=== PATIENT | female | born 1970 | race Caucasian/White ===

== ENCOUNTER 2023-01-16 21:20 | Inpatient (IN) ==
--- NOTE | 2023-01-16 21:34 | Emergency Department Note ---
Impression & Plan Bilateral pneumonia, Nausea & vomiting, Hypocalcemia, Acute dehydration ED Provider Note NAME: ZHANNA BERMUDEZ AGE: 52 SEX: F : 1970 ARRIVES VIA: Walk-In INFORMANT: Patient, ED PROVIDER(S): Benjamin Trimble MD CHIEF COMPLAINT: Weakness, dry heaves, headache MEDICAL DECISION MAKING: Patient does present with numerous complaints; however, the patient did have a recent CT of the head within the last 2 days Osman Crane she requires repeat at this time. The patient has a nonfocal neurologic exam. IV was established and blood work was obtained. The patient was noted to have a white count of 21 the patient was ordered a CT of the abdomen pelvis. Chest x-ray does show increased haziness in the bilateral lung kim and the patient does relate a recent diagnosis of pneumonia. Patient was ordered Zosyn and MRSA swab. Pro- Charanjit and cultures also ordered. Patient's kidney function is unremarkable mild hypokalemia and hypocalcemia. Equivocal Lyme. Bio fire is negative. Lactate of 0.8. Urinalysis negative for blood or infection. CT does show the pneumonia with hiatal hernia with possible constipation but no evidence of appendicitis or bowel obstruction. I did speak the on-call hospitalist service Dr. Cheatham and the patient was admitted to the medicine service Prior /Outside records reviewed: Did review her outpatient records from [facility]. Patient did have a recent negative CT of the head and was diagnosed with pneumonia and migraine. This was on a visit January 14, 2023 Differential diagnosis: Infection, dehydration, metabolic abnormality, hypo/hyperglycemia, electrolyte disturbance, anemia, hypoxia, cardiac sources, intracerebral event, toxicologic, neurologic, as well as other pathologies. Diagnostics, as interpreted by me: ECG: None Cardiac monitoring: An order was placed for continuous cardiac monitoring. The monitor shows a rate of 88 with sinus rhythm. Patient was placed on pulse oximetry Medical decision rules: Curb 65 score Imaging studies: See below I informally reviewed the patient's chest x-ray which does show bilateral increased haziness concerning for possible pneumonia. HPI: Patient presents with numerous complaints states that she has had some regurgitation with feeling as though she has something coming up from the back of her throat does have a known history of reflux. The patient did have a recent visit at [facility] and has had some persistent migrainous type symptoms. The patient is tried rizatriptan as well as other [id number] medications but without significant improvement in symptoms. The patient denies any falls or trauma. Patient relates that she does have a known history of hiatal hernia. Patient was started on amoxicillin for the pneumonia. The patient does feel weak and fatigued. No history of Lyme's or tick bites. Patient does complain of some abdominal discomfort. No dysuria PAST MEDICAL HISTORY: See Below PAST SURGICAL HISTORY: See Below SOCIAL HISTORY: See Below HOME MEDICATIONS: See Below ALLERGIES: See Below VITALS: See Below PHYSICAL EXAMINATION: GENERAL: NAD, fatigued in appearance, non-toxic. EYE EXAM: Normal conjunctiva. PERRL, no anisocoria and EOM's grossly intact w/o pain. NECK: Supple, no nuchal rigidity, no adenopathy, non-tender. No signs of meningismus. FROM of the neck with good chin to chest and neck extension. No stridor. LUNGS: Clear to auscultation. Normal chest wall mechanics. HEART: NSR, no MRG. ABDOMEN: Abdomen soft, mild abdominal discomfort without pain, no masses, no rebound or guarding. BACK: No CVA TTP. SKIN: No rashes and no bruising. UPPER EXTREMITIES: Upper extremities are grossly normal. LOWER EXTREMITIES: Grossly normal, no edema. NEURO EXAM: A&O x3, cranial nerves II-XII grossly intact, normal speech, moves all 4 extremities. Past Med/Surg History Medical History GERD (gastroesophageal reflux disease) Hiatal hernia Surgical History No pertinent past surgical history Social History Smoking Status: Current every day smoker Tobacco Type: Cigarettes Second Hand Exposure: Yes; Do You Dip or Chew Tobacco: No; Hx Alcohol Use: No Hx Substance Use: No Preferred Language: Greek Communication Ability: Effective Controlled Area Checker Required: No Beliefs That Will Affect Care: None Current Living Situation: Spouse Other Information That Helps Us Care for You: No Feels Safe at Home: Yes Safety Concerns: Feels Safe At This Time Allergies Allergies Allergy/AdvReac Type Severity Reaction Status Date / Time No Known Allergies Allergy Verified 01/16/23 22:08 Home Meds Home Medications Medication Instructions Recorded Confirmed atorvastatin 80 mg tablet 80 mg PO DAILY 01/12/22 01/16/23 ezetimibe 10 mg tablet (Zetia) 10 mg PO DAILY 01/12/22 01/16/23 famotidine 20 mg tablet 20 mg PO BID 01/12/22 01/16/23 hydroxyzine pamoate 50 mg capsule 50 mg PO TID PRN Anxiety 01/12/22 01/16/23 losartan 50 mg tablet 50 mg PO DAILY 01/12/22 01/16/23 magnesium oxide 400 mg PO DAILY 01/12/22 01/16/23 omeprazole 40 mg capsule,delayed 40 mg PO BID 01/12/22 01/16/23 release ondansetron 4 mg disintegrating 4 mg PO TID PRN NAUSEA/VOMITING 01/12/22 01/16/23 tablet riboflavin (vitamin B2) 400 mg 400 mg PO DAILY 01/12/22 01/16/23 tablet trazodone 100 mg tablet 100 mg PO HS 01/12/22 01/16/23 albuterol sulfate 90 mcg/actuation 2 puff inhalation Q4H PRN 01/16/23 01/16/23 aerosol inhaler COUGH/SHORT OF BREATH/WHEEZING cefuroxime axetil 500 mg tablet 500 mg PO BID 01/16/23 01/16/23 chlorpromazine 100 mg tablet 100 mg PO HS 01/16/23 01/16/23 cholecalciferol (vitamin D3) 125 125 mcg PO WK 01/16/23 01/16/23 mcg (5,000 unit) tablet (Vitamin D3) clonazepam 1 mg tablet 1 mg PO HS 01/16/23 01/16/23 dexamethasone 4 mg tablet 4 mg PO DAILY 01/16/23 01/16/23 diphenhydramine HCl 25 mg capsule 25 mg PO HS PRN IF NEEDED PER EXT 01/16/23 01/16/23 (Banophen) MED HX. escitalopram oxalate 10 mg tablet 10 mg PO DAILY 01/16/23 01/16/23 (Lexapro) ferrous sulfate 325 mg (65 mg 325 mg PO QAM 01/16/23 01/16/23 iron) tablet fluticasone 250 mcg-salmeterol 50 1 inh inhalation BID 01/16/23 01/16/23 mcg/dose blistr powdr for inhalation (Advair Diskus) levetiracetam 750 mg tablet 750 mg PO BID 01/16/23 01/16/23 (Keppra) mupirocin 2 % topical ointment 1 applic topical TID 01/16/23 01/16/23 orlistat 120 mg capsule (Xenical) 120 mg PO TIDM 01/16/23 01/16/23 rizatriptan 10 mg disintegrating 10 mg translingual DIRECTED PRN 01/16/23 01/16/23 tablet Migraine Headache sucralfate 1 gram tablet (Carafate) 1 g PO ACHS 01/16/23 01/16/23 Results & Data (ED) Vital Signs Vital Signs - 24 hr 01/16/23 21:21 01/16/23 21:40 01/17/23 00:13 Temperature 36.7 C Temperature Source Temporal Artery Scan Pulse Rate 88 Pulse Rate [Apical] 62 Pulse Rhythm [Apical] Regular Pulse Strength [Apical] Normal Respiratory Rate 18 16 Respiratory Effort / Characteristics Non-Labored Spontaneous Non-Labored Spontaneous Respiratory Depth Normal Normal Respiratory Pattern Regular Blood Pressure 132/79 Blood Pressure [Left Arm] 145/84 H Blood Pressure Mean 96 Blood Pressure Mean [Left Arm] 104 Blood Pressure Position Sitting Pulse Oximetry 95 98 95 Oxygen Delivery Method Room Air Room Air Room Air Sepsis Recent Fever Within 48 Hours No Sepsis New/Unexplained Change in Mental Status No Sepsis Action Taken by Nursing No Action Required 01/17/23 00:16 Temperature Temperature Source Pulse Rate 62 Pulse Rate [Apical] Pulse Rhythm [Apical] Pulse Strength [Apical] Respiratory Rate Respiratory Effort / Characteristics Respiratory Depth Respiratory Pattern Blood Pressure Blood Pressure [Left Arm] Blood Pressure Mean Blood Pressure Mean [Left Arm] Blood Pressure Position Pulse Oximetry Oxygen Delivery Method Sepsis Recent Fever Within 48 Hours Sepsis New/Unexplained Change in Mental Status Sepsis Action Taken by Half-Way Medications Current Medication List: was personally reviewed by me Laboratory Data Attestation: I reviewed the patient's lab results. 01/17/23 05:31 01/17/23 05:31 Lab Results 01/16/23 01/16/23 01/16/23 Range/Units 21:50 21:50 21:50 WBC 21.02 H (4.8-10.8) K/ul RBC 3.73 L (4.20-5.40) M/uL Hgb 11.9 L (12.0-16.0) g/dl Hct 34.7 L (37.0-47.0) % MCV 93.0 (80.0-100.0) fL MCH 31.9 (25.0-34.0) pg MCHC 34.3 (32.0-36.0) g/dL RDW Std Deviation 45.0 (36.4-46.3) fL RDW Coeff of Tejal 13.2 (11.5-14.5) % Plt Count 215 (130-400) K/uL MPV 10.4 (9.4-12.4) fL Immature Gran % (Auto) 1.5 % Neut % (Auto) 79.6 % Lymph % (Auto) 11.7 % [place] % (Auto) 7.0 % Eos % (Auto) 0.0 % Baso % (Auto) 0.2 % Neut # (Auto) 16.73 H (1.40-6.50) K/uL Lymph # (Auto) 2.45 (1.2-3.4) K/uL [place] # (Auto) 1.48 H (0.11-0.59) K/uL Eos # (Auto) 0.00 (0-0.50) K/uL Baso # (Auto) 0.04 (0-0.2) K/uL Immature Gran # (Auto) 0.32 H (0.01-0.20) K/uL Sodium 142 (136-145) mmol/L Potassium 3.2 L (3.5-5.1) mmol/L Chloride 110 H (98-107) mmol/L Carbon Dioxide 26 (21-32) mmol/L Anion Gap 6 (3-11) BUN 10 (6-23) mg/dl Creatinine 0.62 (0.6-1.2) mg/dl Est Cr Clr Drug Dosing 115.7 ml/min Est GFR ( Amer) 121.0 ml/min Est GFR (Non-Af Amer) 104.4 ml/min BUN/Creatinine Ratio 16.1 (10-20) Glucose 177 H (70-99(Fasting)) mg/dl Lactate (0.4-2.0) mmol/L Calcium 8.3 L (8.6-10.3) mg/dl Magnesium 2.0 (1.7-2.4) mg/dl Total Bilirubin 0.2 (0.2-1.0) mg/dl AST 9 L (13-39) U/L ALT 13 (7-52) U/L Alkaline Phosphatase 68 (34-104) U/L Troponin I High Sens < 2.3 (0-14) pg/ml B-Natriuretic Peptide (0-100) pg/ml Total Protein 6.2 (6.0-8.3) gm/dl Albumin 3.5 (3.4-5.0) gm/dl Globulin 2.7 (2.5-4.0) gm/dl Albumin/Globulin Ratio 1.3 (0.9-2) Lipase 13 (11-82) U/L Procalcitonin (0-0.5) ng/ml Urine Color Urine Appearance (Clear) Urine pH (4.5-7.5) Ur Specific [place] (1.000-1.030) Urine Protein (Negative) Urine Glucose (UA) (Negative) Urine Ketones (Negative) Urine Blood (Negative) Urine Nitrite (Negative) Urine Bilirubin (Negative) Urine Urobilinogen (Negative) Ur Leukocyte Esterase (Negative) Nasal Screen MRSA (PCR) (Negative) Adenovirus (PCR) (NotDetected) B. pertussis DNA (PCR) (NotDetected) B.parapertussis DNA PCR (NotDetected) Lyme Disease IgG Ab Negative (Negative) Lyme Disease IgM Ab Equivocal A (Negative) C. pneumoniae DNA (PCR) (NotDetected) Coronavirus OC43 (PCR) (NotDetected) Coronavirus HKU1 (PCR) (NotDetected) Coronavirus 229E (PCR) (NotDetected) SARS-CoV-2 (PCR) (NotDetected) Coronavirus NL63 (PCR) (NotDetected) Human Metapneumovir PCR (NotDetected) Influenza Type A (PCR) (NotDetected) Influenza Type B (PCR) (NotDetected) M. pneumoniae (PCR) (NotDetected) Parainfluenza 1 (PCR) (NotDetected) Parainfluenza 2 (PCR) (NotDetected) Parainfluenza 3 (PCR) (NotDetected) Parainfluenza 4 (PCR) (NotDetected) RSV (PCR) (NotDetected) Entero/Rhino (PCR) (NotDetected) 01/16/23 01/16/23 01/16/23 Range/Units 21:50 21:55 23:50 WBC (4.8-10.8) K/ul RBC (4.20-5.40) M/uL Hgb (12.0-16.0) g/dl Hct (37.0-47.0) % MCV (80.0-100.0) fL MCH (25.0-34.0) pg MCHC (32.0-36.0) g/dL RDW Std Deviation (36.4-46.3) fL RDW Coeff of Tejal (11.5-14.5) % Plt Count (130-400) K/uL MPV (9.4-12.4) fL Immature Gran % (Auto) % Neut % (Auto) % Lymph % (Auto) % [place] % (Auto) % Eos % (Auto) % Baso % (Auto) % Neut # (Auto) (1.40-6.50) K/uL Lymph # (Auto) (1.2-3.4) K/uL [place] # (Auto) (0.11-0.59) K/uL Eos # (Auto) (0-0.50) K/uL Baso # (Auto) (0-0.2) K/uL Immature Gran # (Auto) (0.01-0.20) K/uL Sodium (136-145) mmol/L Potassium (3.5-5.1) mmol/L Chloride (98-107) mmol/L Carbon Dioxide (21-32) mmol/L Anion Gap (3-11) BUN (6-23) mg/dl Creatinine (0.6-1.2) mg/dl Est Cr Clr Drug Dosing ml/min Est GFR ( Amer) ml/min Est GFR (Non-Af Amer) ml/min BUN/Creatinine Ratio (10-20) Glucose (70-99(Fasting)) mg/dl Lactate (0.4-2.0) mmol/L Calcium (8.6-10.3) mg/dl Magnesium (1.7-2.4) mg/dl Total Bilirubin (0.2-1.0) mg/dl AST (13-39) U/L ALT (7-52) U/L Alkaline Phosphatase (34-104) U/L Troponin I High Sens (0-14) pg/ml B-Natriuretic Peptide (0-100) pg/ml Total Protein (6.0-8.3) gm/dl Albumin (3.4-5.0) gm/dl Globulin (2.5-4.0) gm/dl Albumin/Globulin Ratio (0.9-2) Lipase (11-82) U/L Procalcitonin < 0.05 (0-0.5) ng/ml Urine Color Urine Appearance (Clear) Urine pH (4.5-7.5) Ur Specific [place] (1.000-1.030) Urine Protein (Negative) Urine Glucose (UA) (Negative) Urine Ketones (Negative) Urine Blood (Negative) Urine Nitrite (Negative) Urine Bilirubin (Negative) Urine Urobilinogen (Negative) Ur Leukocyte Esterase (Negative) Nasal Screen MRSA (PCR) Negative (Negative) Adenovirus (PCR) Not Detected (NotDetected) B. pertussis DNA (PCR) Not Detected (NotDetected) B.parapertussis DNA PCR Not Detected (NotDetected) Lyme Disease IgG Ab (Negative) Lyme Disease IgM Ab (Negative) C. pneumoniae DNA (PCR) Not Detected (NotDetected) Coronavirus OC43 (PCR) Not Detected (NotDetected) Coronavirus HKU1 (PCR) Not Detected (NotDetected) Coronavirus 229E (PCR) Not Detected (NotDetected) SARS-CoV-2 (PCR) Not Detected (NotDetected) Coronavirus NL63 (PCR) Not Detected (NotDetected) Human Metapneumovir PCR Not Detected (NotDetected) Influenza Type A (PCR) Not Detected (NotDetected) Influenza Type B (PCR) Not Detected (NotDetected) M. pneumoniae (PCR) Not Detected (NotDetected) Parainfluenza 1 (PCR) Not Detected (NotDetected) Parainfluenza 2 (PCR) Not Detected (NotDetected) Parainfluenza 3 (PCR) Not Detected (NotDetected) Parainfluenza 4 (PCR) Not Detected (NotDetected) RSV (PCR) Not Detected (NotDetected) Entero/Rhino (PCR) Not Detected (NotDetected) 01/16/23 01/17/23 01/17/23 Range/Units Unknown 00:05 00:06 WBC (4.8-10.8) K/ul RBC (4.20-5.40) M/uL Hgb (12.0-16.0) g/dl Hct (37.0-47.0) % MCV (80.0-100.0) fL MCH (25.0-34.0) pg MCHC (32.0-36.0) g/dL RDW Std Deviation (36.4-46.3) fL RDW Coeff of Tejal (11.5-14.5) % Plt Count (130-400) K/uL MPV (9.4-12.4) fL Immature Gran % (Auto) % Neut % (Auto) % Lymph % (Auto) % [place] % (Auto) % Eos % (Auto) % Baso % (Auto) % Neut # (Auto) (1.40-6.50) K/uL Lymph # (Auto) (1.2-3.4) K/uL [place] # (Auto) (0.11-0.59) K/uL Eos # (Auto) (0-0.50) K/uL Baso # (Auto) (0-0.2) K/uL Immature Gran # (Auto) (0.01-0.20) K/uL Sodium (136-145) mmol/L Potassium (3.5-5.1) mmol/L Chloride (98-107) mmol/L Carbon Dioxide (21-32) mmol/L Anion Gap (3-11) BUN (6-23) mg/dl Creatinine (0.6-1.2) mg/dl Est Cr Clr Drug Dosing ml/min Est GFR ( Amer) ml/min Est GFR (Non-Af Amer) ml/min BUN/Creatinine Ratio (10-20) Glucose (70-99(Fasting)) mg/dl Lactate 0.8 (0.4-2.0) mmol/L Calcium (8.6-10.3) mg/dl Magnesium (1.7-2.4) mg/dl Total Bilirubin (0.2-1.0) mg/dl AST (13-39) U/L ALT (7-52) U/L Alkaline Phosphatase (34-104) U/L Troponin I High Sens (0-14) pg/ml B-Natriuretic Peptide 268 H (0-100) pg/ml Total Protein (6.0-8.3) gm/dl Albumin (3.4-5.0) gm/dl Globulin (2.5-4.0) gm/dl Albumin/Globulin Ratio (0.9-2) Lipase (11-82) U/L Procalcitonin (0-0.5) ng/ml Urine Color Yellow Urine Appearance Clear (Clear) Urine pH 6.5 (4.5-7.5) Ur Specific [place] 1.006 (1.000-1.030) Urine Protein Negative (Negative) Urine Glucose (UA) Negative (Negative) Urine Ketones Negative (Negative) Urine Blood Negative (Negative) Urine Nitrite Negative (Negative) Urine Bilirubin Negative (Negative) Urine Urobilinogen Negative (Negative) Ur Leukocyte Esterase Negative (Negative) Nasal Screen MRSA (PCR) (Negative) Adenovirus (PCR) (NotDetected) B. pertussis DNA (PCR) (NotDetected) B.parapertussis DNA PCR (NotDetected) Lyme Disease IgG Ab (Negative) Lyme Disease IgM Ab (Negative) C. pneumoniae DNA (PCR) (NotDetected) Coronavirus OC43 (PCR) (NotDetected) Coronavirus HKU1 (PCR) (NotDetected) Coronavirus 229E (PCR) (NotDetected) SARS-CoV-2 (PCR) (NotDetected) Coronavirus NL63 (PCR) (NotDetected) Human Metapneumovir PCR (NotDetected) Influenza Type A (PCR) (NotDetected) Influenza Type B (PCR) (NotDetected) M. pneumoniae (PCR) (NotDetected) Parainfluenza 1 (PCR) (NotDetected) Parainfluenza 2 (PCR) (NotDetected) Parainfluenza 3 (PCR) (NotDetected) Parainfluenza 4 (PCR) (NotDetected) RSV (PCR) (NotDetected) Entero/Rhino (PCR) (NotDetected) Administered Medications Acetaminophen (Acetaminophen 325 Mg Tab) 325 mg PO Q6H PRN PRN Reason: Mild Pain/Fever Stop: 02/16/23 04:09 Last Admin: 01/17/23 11:37 Dose: 325 mg Documented By: LOUISA Atorvastatin Calcium (Atorvastatin 40 Mg Tab) 80 mg PO DAILY [facility] Stop: 02/16/23 08:59 Last Admin: 01/17/23 08:11 Dose: 80 mg Documented By: LOUISA Ezetimibe (Ezetimibe 10 Mg Tablet) 10 mg PO DAILY [facility] Stop: 02/16/23 08:59 Last Admin: 01/17/23 08:11 Dose: 10 mg Documented By: LOUISA Escitalopram Oxalate (Escitalopram Oxalate 10 Mg Tab) 10 mg PO DAILY [facility] Stop: 02/16/23 08:59 Last Admin: 01/17/23 08:12 Dose: 10 mg Documented By: LOUISA Guaifenesin (Guaifenesin 600 Mg Tabcr) 600 mg PO Q12 [facility] Stop: 02/16/23 09:04 Last Admin: 01/17/23 10:08 Dose: 600 mg Documented By: LOUISA Hydroxyzine HCl (Hydroxyzine Hcl 25 Mg Tab) 50 mg PO TID PRN PRN Reason: Anxiety Stop: 02/16/23 03:10 Last Admin: 01/17/23 17:56 Dose: 50 mg Documented By: LOUISA Pantoprazole Sodium 40 mg/ (Syringe) 10 mls @ 5 mls/min IV BID [facility] Stop: 02/16/23 08:59 Last Admin: 01/17/23 08:12 Dose: 5 mls/min Documented By: LOUISA Piperacillin Sod/Tazobactam (Sod 4.5 gm/ Dextrose) 120 mls @ 30 mls/hr IV Q8H [facility]; Protocol Stop: 01/24/23 05:59 Last Infusion: 01/17/23 19:22 Dose: 0 mls/hr Documented By: Admin: 01/17/23 14:57 Dose: 30 mls/hr Documented By: Infusion: 01/17/23 09:45 Dose: 0 mls/hr Documented By: Admin: 01/17/23 04:56 Dose: 30 mls/hr Documented By: RIO Levetiracetam (Levetiracetam 250 Mg Tab) 750 mg PO BID [facility] Stop: 02/16/23 08:59 Last Admin: 01/17/23 08:11 Dose: 750 mg Documented By: LOUISA Losartan Potassium (Losartan Potassium 50 Mg Tab) 50 mg PO DAILY [facility] Stop: 02/16/23 08:59 Last Admin: 01/17/23 08:11 Dose: 50 mg Documented By: LOUISA Nicotine (Nicotine 7 Mg/24 Hr Tdsy) 7 mg TD QAM [facility] Stop: 02/16/23 00:59 Last Admin: 01/17/23 17:56 Dose: 7 mg Documented By: Admin: 01/17/23 01:32 Dose: 7 mg Documented By: LISSY Senna/Docusate Sodium (Docusate Sodium/Senna 50/8.6mg Tab) 1 tab PO [facility] Stop: 02/16/23 01:34 Last Admin: 01/17/23 08:14 Dose: 1 tab Documented By: Admin: 01/17/23 04:23 Dose: 1 tab Documented By: RIO Sucralfate (Sucralfate 1 Gm Tab) 1 gm PO ACHS [facility] Stop: 02/16/23 07:29 Last Admin: 01/17/23 16:50 Dose: 1 gm Documented By: Admin: 01/17/23 11:06 Dose: 1 gm Documented By: Admin: 01/17/23 08:11 Dose: 1 gm Documented By: LOUISA Discontinued Medications Azithromycin (Azithromycin 250 Mg Tab) 500 mg PO NOW ONE Stop: 01/16/23 23:43 Last Admin: 01/17/23 01:13 Dose: 500 mg Documented By: LISSY Gadobutrol (Gadobutrol 65ml Vial) 9 ml IV ONCE ONE Stop: 01/17/23 02:12 Last Admin: 01/17/23 02:12 Dose: 9 ml Documented By: WILVER Sodium Chloride (Nss 1000ml) 1,000 mls @ 999 mls/hr IV .Q1H1M STA Stop: 01/16/23 22:40 Last Infusion: 01/16/23 22:59 Dose: 0 mls/hr Documented By: Admin: 01/16/23 21:58 Dose: 999 mls/hr Documented By: KENYA Magnesium Sulfate/Dextrose (Magnesium Sulfate / D5w) 1 gm in 100 mls @ 100 mls/hr IV NOW ONE Stop: 01/16/23 22:39 Last Infusion: 01/16/23 23:00 Dose: 0 mls/hr Documented By: Admin: 01/16/23 22:00 Dose: 100 mls/hr Documented By: KENYA Piperacillin Sod/Tazobactam Sod (Zosyn) 4.5 gm in 120 mls @ 240 mls/hr IV NOW ONE Stop: 01/17/23 00:11 Last Infusion: 01/17/23 01:24 Dose: 0 mls/hr Documented By: Admin: 01/17/23 00:54 Dose: 240 mls/hr Documented By: LISSY Sodium Chloride (Nss 1000ml) 1,000 mls @ 999 mls/hr IV .Q1H1M ONE Stop: 01/17/23 00:42 Last Admin: 01/17/23 00:55 Dose: Not Given Documented By: LISSY Pantoprazole Sodium 80 mg/ (Dextrose) 120 mls @ 480 mls/hr IV ONE STA Stop: 01/17/23 01:03 Last Infusion: 01/17/23 01:30 Dose: 0 mls/hr Documented By: Admin: 01/17/23 01:15 Dose: 480 mls/hr Documented By: LISSY Acetaminophen (Ofirmev) 1,000 mg in 100 mls @ 400 mls/hr IV NOW STA Stop: 01/17/23 01:03 Last Infusion: 01/17/23 03:42 Dose: 0 mls/hr Documented By: Admin: 01/17/23 02:33 Dose: 400 mls/hr Documented By: LISSY Potassium Chloride (K [facility] / Wtr) 10 meq in 100 mls @ 100 mls/hr IV Q1H [facility] Stop: 01/17/23 04:59 Last Infusion: 01/17/23 07:28 Dose: 0 mls/hr Documented By: Admin: 01/17/23 06:24 Dose: 100 mls/hr Documented By: Infusion: 01/17/23 06:24 Dose: 100 mls/hr Documented By: Admin: 01/17/23 06:24 Dose: 100 mls/hr Documented By: Infusion: 01/17/23 05:40 Dose: 100 mls/hr Documented By: Admin: 01/17/23 04:40 Dose: 100 mls/hr Documented By: Infusion: 01/17/23 04:40 Dose: 100 mls/hr Documented By: Admin: 01/17/23 04:36 Dose: 100 mls/hr Documented By: RIO Ioversol (Optiray 320 100ml) 100 ml IV ONCE ONE Stop: 01/16/23 23:06 Last Admin: 01/16/23 23:05 Dose: 93 ml Documented By: ARETHA Ketorolac Tromethamine (Ketorolac Tromethamine 15 Mg/Ml Vial) 10 mg IV NOW STA Stop: 01/16/23 21:41 Last Admin: 01/16/23 21:59 Dose: 10 mg Documented By: KENYA Levetiracetam (Levetiracetam Oral Soln 100mg/Ml) 750 mg PO NOW STA Stop: 01/17/23 00:52 Last Admin: 01/17/23 01:12 Dose: 750 mg Documented By: LISSY Ondansetron HCl (Ondansetron Inj 2 Mg/Ml 2 Ml Vial) 4 mg IV NOW STA Stop: 01/16/23 21:41 Last Admin: 01/16/23 21:58 Dose: 4 mg Documented By: KENYA Imaging Data Radiologist's Impression: Chest X-Ray 01/16/23 21:40 XR chest 1V portable HISTORY: cough COMPARISON: Chest 11/20/2022. FINDINGS: There are low lung volumes. No pneumothorax. No pleural effusions. The heart is top normal in size. There is a small hiatus hernia. Cervical spinal fusion hardware is again noted. Faint patchy bibasilar densities are noted. IMPRESSION: Faint patchy bibasilar densities. This likely represents a pneumonia. ACT 112: Negative or not required by law. Electronically signed by: Sebastien Cerda M.D. 01/17/2023 7:10 AM Abdomen/Pelvis CT 01/16/23 22:56 Exam(s): CT ABDOMEN + PELVIS With Contrast IV Amt: 93 ml optiray 320 EXAM: CT Abdomen and Pelvis With Intravenous Contrast CLINICAL HISTORY: Reason for exam: ab pain. TECHNIQUE: Axial computed tomography images of the abdomen and pelvis with intravenous contrast. CTDI is 27.88 mGy and DLP is 1415.99 mGy-cm. Automated exposure control was utilized for the study. A dose lowering technique was utilized adhering to the principles of ALARA. CONTRAST: Patient received 93 ml optiray 320 of IV contrast COMPARISON: 01/12/2022. FINDINGS: Lung bases: Multilobar consolidation involving the bilateral lower lobes, right middle lobe consistent with multifocal pneumonia. Minimal atelectasis of the lingular lobe. Pleural space: Trace bilateral pleural effusions versus pleural thickening. Mediastinum: Mild hiatal hernia. ABDOMEN: Liver: Unremarkable. No mass. Gallbladder and bile ducts: Unremarkable. No calcified stones. No ductal dilation. Pancreas: Unremarkable. No mass. No ductal dilation. Spleen: Unremarkable. No splenomegaly. Adrenals: Unremarkable. No mass. Kidneys and ureters: Unremarkable. No solid mass. No hydronephrosis. Stomach and bowel: Moderate to abundant fecal debris within the colon, cannot exclude mild constipation. No obstruction. No mucosal thickening. PELVIS: Appendix: Normal appendix. Bladder: Unremarkable. No mass. Reproductive: Anteverted uterus. ABDOMEN and PELVIS: Intraperitoneal space: Unremarkable. No free air. No significant fluid collection. Bones/joints: Mild spondylosis throughout the lumbar spine. No acute fracture. No dislocation. Soft tissues: Unremarkable. Vasculature: Unremarkable. No abdominal aortic aneurysm. Lymph nodes: Unremarkable. No enlarged lymph nodes. IMPRESSION: 1. Multilobar pneumonia. 2. Mild hiatal hernia. 3. Possible constipation. No acute appendicitis or bowel obstruction. Electronically signed by: Radha Brumfield MD 01/16/23 23:39 PM Discharge Plan Visit Data Chief Complaint: Vomiting Stated Complaint: VOMITING ED Provider: Benjamin Trimble Discharge Problem: Bilateral pneumonia, Nausea & vomiting, Hypocalcemia, Acute dehydration Patient Disposition: Admitted As Inpatient Discharge Instructions Interventions: ED Discharge Assessment Last Done: 01/17/23 01:52
[2023-01-16] MEDS ORDERED: ONDANSETRON INJ 2 MG/ML 2 ML VIAL IV STA (21:40)
[2023-01-16] MEDS ORDERED: KETOROLAC TROMETHAMINE 15 MG/ML VIAL IV STA (21:40)
[2023-01-16] MEDS ORDERED: MAGNESIUM SULFATE / D5W 1 GM/100 ML BAG IV ONE (21:40)
[2023-01-16] MEDS ORDERED: SODIUM CHLORIDE 0.9% 1000ML 1,000 ML IV STA (21:40)
[2023-01-16 22:19] LABS: Basophils # (auto) 0.04 K/uL (0-0.2); Basophils % (auto) 0.2 %; Hematocrit (blood only) 34.7 % (37.0-47.0); Hemoglobin 11.9 g/dl (12.0-16.0); Immature Granulocytes # (auto) 0.32 K/uL (0.01-0.20); Immature Granulocytes % (auto) 1.5 %; Lymphocytes # (auto) 2.45 K/uL (1.2-3.4); Lymphocytes % (auto) 11.7 %; Mean Corpuscular Hemoglobin 31.9 pg (25.0-34.0); Mean Corpuscular Hgb Conc 34.3 g/dL (32.0-36.0); Mean Platelet Volume 10.4 fL (9.4-12.4); Monocytes # (auto) 1.48 K/uL (0.11-0.59); Neutrophils # (auto) 16.73 K/uL (1.40-6.50); Neutrophils % (auto) 79.6 %; Platelet Count 215 K/uL (130-400); RDW Coefficient of Variation 13.2 % (11.5-14.5); Red Blood Count 3.73 M/uL (4.20-5.40); White Blood Count 21.02 K/ul (4.8-10.8)
[2023-01-16 22:27] LABS: Alanine Aminotransferase 13 U/L (7-52); Albumin Globulin Ratio 1.3 (0.9-2); Albumin Level 3.5 gm/dl (3.4-5.0); Alkaline Phosphatase 68 U/L (34-104); Anion Gap 6 (3-11); Aspartate Aminotransferase 9 U/L (13-39); BUN Creatinine Ratio 16.1 (10-20); Bilirubin,Total 0.2 mg/dl (0.2-1.0); Blood Urea Nitrogen 10 mg/dl (6-23); Calcium 8.3 mg/dl (8.6-10.3); Carbon Dioxide 26 mmol/L (21-32); Chloride 110 mmol/L (98-107); Creatinine Clr Calc Pharmacy 115.7 ml/min; Est GFR (Non-African American) 104.4 ml/min; Globulin 2.7 gm/dl (2.5-4.0); Glucose 177 mg/dl (70-99(Fasting)); Lipase 13 U/L (11-82); Potassium 3.2 mmol/L (3.5-5.1); Sodium 142 mmol/L (136-145); Total Protein 6.2 gm/dl (6.0-8.3)
[2023-01-16 22:33] LABS: Troponin I High Sensitivity < 2.3 pg/ml (0-14)
[2023-01-16 22:52] LABS: Lyme Ab IgG w/WB Rflx Negative (Negative)
[2023-01-16 22:57] LABS: Adenovirus PCR Not Detected (NotDetected); Bordetella parapertussis PCR Not Detected (NotDetected); Bordetella pertussis PCR Not Detected (NotDetected); Chlamydia pneumoniae PCR Not Detected (NotDetected); Coronavirus 229E PCR Not Detected (NotDetected); Coronavirus CoV-2 (COVID19)PCR Not Detected (NotDetected); Coronavirus HKU1 PCR Not Detected (NotDetected); Coronavirus NL63 PCR Not Detected (NotDetected); Coronavirus OC43PCR Not Detected (NotDetected); Human Metapneumovirus PCR Not Detected (NotDetected); Influenza A PCR Not Detected (NotDetected); Influenza B PCR Not Detected (NotDetected); Mycoplasma pneumoniae PCR Not Detected (NotDetected); Parainfluenza Virus 1 PCR Not Detected (NotDetected); Parainfluenza Virus 2 PCR Not Detected (NotDetected); Parainfluenza Virus 3 PCR Not Detected (NotDetected); Parainfluenza Virus 4 PCR Not Detected (NotDetected); Respiratory Syncytial VirusPCR Not Detected (NotDetected); Rhinovirus/Enterovirus PCR Not Detected (NotDetected)
[2023-01-16 22:59] LABS: Lyme Ab IgM w/WB Rflx Equivocal (Negative)
[2023-01-16 23:00] LABS: Appearance Urine Clear (Clear); Bilirubin Urine Negative (Negative); Blood Urine Negative (Negative); Color Urine Yellow; Glucose Urine UA Negative (Negative); Ketones Urine Negative (Negative); Leukocyte Esterase Urine Negative (Negative); Nitrite Urine Negative (Negative); Protein Urine Negative (Negative); Specific Gravity Urine 1.006 (1.000-1.030); Urobilinogen Urine Negative (Negative); pH Urine 6.5 (4.5-7.5)
[2023-01-16] MEDS ORDERED: OPTIRAY 320 100ml IV ONE (23:05)
--- NOTE | 2023-01-16 23:40 | CT Scan Report ---
Exam(s): CT ABDOMEN + PELVIS With Contrast IV Amt: 93 ml optiray 320 EXAM: CT Abdomen and Pelvis With Intravenous Contrast CLINICAL HISTORY: Reason for exam: ab pain. TECHNIQUE: Axial computed tomography images of the abdomen and pelvis with intravenous contrast. CTDI is 27.88 mGy and DLP is 1415.99 mGy-cm. Automated exposure control was utilized for the study. A dose lowering technique was utilized adhering to the principles of ALARA. CONTRAST: Patient received 93 ml optiray 320 of IV contrast COMPARISON: 01/12/2022. FINDINGS: Lung bases: Multilobar consolidation involving the bilateral lower lobes, right middle lobe consistent with multifocal pneumonia. Minimal atelectasis of the lingular lobe. Pleural space: Trace bilateral pleural effusions versus pleural thickening. Mediastinum: Mild hiatal hernia. ABDOMEN: Liver: Unremarkable. No mass. Gallbladder and bile ducts: Unremarkable. No calcified stones. No ductal dilation. Pancreas: Unremarkable. No mass. No ductal dilation. Spleen: Unremarkable. No splenomegaly. Adrenals: Unremarkable. No mass. Kidneys and ureters: Unremarkable. No solid mass. No hydronephrosis. Stomach and bowel: Moderate to abundant fecal debris within the colon, cannot exclude mild constipation. No obstruction. No mucosal thickening. PELVIS: Appendix: Normal appendix. Bladder: Unremarkable. No mass. Reproductive: Anteverted uterus. ABDOMEN and PELVIS: Intraperitoneal space: Unremarkable. No free air. No significant fluid collection. Bones/joints: Mild spondylosis throughout the lumbar spine. No acute fracture. No dislocation. Soft tissues: Unremarkable. Vasculature: Unremarkable. No abdominal aortic aneurysm. Lymph nodes: Unremarkable. No enlarged lymph nodes. IMPRESSION: 1. Multilobar pneumonia. 2. Mild hiatal hernia. 3. Possible constipation. No acute appendicitis or bowel obstruction. Electronically signed by: Radha Brumfield MD 01/16/23 23:39 PM
[2023-01-16] MEDS ORDERED: PIPERACILLIN/TAZOBACTAM 4.5 GM/120 ML BAG IV ONE (23:42)
[2023-01-16] MEDS ORDERED: AZITHROMYCIN 250 MG TAB PO ONE (23:42)
[2023-01-16] MEDS ORDERED: SODIUM CHLORIDE 0.9% 1000ML 1,000 ML IV ONE (23:42)
[2023-01-17] MEDS ORDERED: PANTOprazole 80 MG in DEXTROSE 5% 100 ML IV STA (00:49)
[2023-01-17] MEDS ORDERED: ACETAMINOPHEN 1,000 MG/100 ML VIAL IV STA (00:49)
--- NOTE | 2023-01-17 00:50 | History & Physical Report ---
Date of Service January 17, 2023 Assessment & Plan (1) Healthcare associated bacterial pneumonia: Plan: Multilobar pneumonia on CT Recent confinement at a local psychiatric facility possible aspiration, history hiatal hernia Possible sepsis hx COPD Not in acute exacerbation without overt wheezing on exam current oxygenation within normal limits New onset anemia secondary to possible UGIB hypertension, BP stable hyperlipidemia on statin Rx Worsening migraine headaches rule out brain tumor History seizure/PNES disorder, baseline control on Keppra HCV status post treatment anxiety/PTSD/mood disorder/borderline personality disorder, at baseline as per patient hyperprolactinemia likely secondary to psychiatric meds Hypokalemia secondary to emesis Steroid-induced hyperglycemia likely secondary to recent outpatient Decadron Rx ongoing tobacco abuse Medical telemetry CS, Zosyn Aspiration precautions, swallow eval Follow H&H, transfuse PRBC if hemoglobin less than 7 and or for symptomatic anemia IV PPI for UGIB GI consult re: UGIB N.p.o. until patient seen by GI for possible endoscopy MRI brain Re: Worsening migraine headaches May benefit from inpatient neurology evaluation regarding worsening migraine headaches Replace potassium Nicotine patch Check hemoglobin A1c DVT prophylaxis. SCDs Re: GI bleed Full code Patient requesting updates providers. Mr. Roverto Montelongo, contact #[phone]. Text document was generated using mySB[employer] voice recognition software. It may contain grammatical or spelling errors. Kindly contact undersigned for clarification of any documentation item in question. History of Present Illness Chief Complaint: Abdominal pain, nausea, vomiting Primary Care Provider: Rick Owens DO History obtained from patient, family, and records. Medical history significant for COPD, hypertension, hyperlipidemia, migraine, history seizure/psychogenic nonepileptic seizures as per records, HCV status post treatment, anxiety/PTSD/mood disorder/borderline personality disorder, hiatal hernia, hyperprolactinemia as per records, past alcohol abuse, ongoing tobacco abuse. Patient migraine attacks worsening and more frequent in the last year. Two [facility] ER visits last month for anxiety and mood issues. Recent confinement at the [facility] last week for mood issues/suicidality. Following discharge from [facility], patient with achy abdominal pain, nausea, vomiting and subsequent junky cough symptoms. No chest pain, some SOB. Admits to coughing with meals/water intake if not careful. Not sure about sick contacts. Two ER visits at [facility] last week for headache vomiting attributed to migraine. Patient prescribed cefuroxime, Zithromax, and Decadron medications for pneumonia and migraine after second [facility] ER visit 3 days ago. Patient later noted dark emesis. Not sure if blood. Has not moved her bowels a lot. No fever, no chills. Patient denies inordinate OTC NSAID intake. Patient consulted ER for worsening symptoms. Azithromycin and Zosyn administered at the ER for multilobar pneumonia on CT imaging. Medical History as above 2021 EGD showed esophageal stenosis, hiatal hernia 2014 colonoscopy was normal Surgical History : D&C, foot/toe surgery, forearm/wrist surgery, endometrial ablation/hysteroscopy, neck surgery Family History : Breast cancer, heart disease Personal/Social history : 1/4 pack daily, past alcohol abuse, disabled Allergies Allergy/AdvReac Type Severity Reaction Status Date / Time No Known Allergies Allergy Verified 01/16/23 22:08 Home Medications Medication Instructions Recorded Confirmed Type atorvastatin 80 mg tablet 80 mg PO DAILY 01/12/22 01/16/23 History ezetimibe 10 mg tablet (Zetia) 10 mg PO DAILY 01/12/22 01/16/23 History famotidine 20 mg tablet 20 mg PO BID 01/12/22 01/16/23 History hydroxyzine pamoate 50 mg capsule 50 mg PO TID PRN Anxiety 01/12/22 01/16/23 History losartan 50 mg tablet 50 mg PO DAILY 01/12/22 01/16/23 History magnesium oxide 400 mg PO DAILY 01/12/22 01/16/23 History omeprazole 40 mg capsule,delayed 40 mg PO BID 01/12/22 01/16/23 History release ondansetron 4 mg disintegrating 4 mg PO TID PRN NAUSEA/VOMITING 01/12/22 01/16/23 History tablet riboflavin (vitamin B2) 400 mg 400 mg PO DAILY 01/12/22 01/16/23 History tablet trazodone 100 mg tablet 100 mg PO HS 01/12/22 01/16/23 History albuterol sulfate 90 mcg/actuation 2 puff inhalation Q4H PRN 01/16/23 01/16/23 History aerosol inhaler COUGH/SHORT OF BREATH/WHEEZING cefuroxime axetil 500 mg tablet 500 mg PO BID 01/16/23 01/16/23 History chlorpromazine 100 mg tablet 100 mg PO HS 01/16/23 01/16/23 History cholecalciferol (vitamin D3) 125 125 mcg PO WK 01/16/23 01/16/23 History mcg (5,000 unit) tablet (Vitamin D3) clonazepam 1 mg tablet 1 mg PO HS 01/16/23 01/16/23 History dexamethasone 4 mg tablet 4 mg PO DAILY 01/16/23 01/16/23 History diphenhydramine HCl 25 mg capsule 25 mg PO HS PRN IF NEEDED PER EXT 01/16/23 01/16/23 History (Banophen) MED HX. escitalopram oxalate 10 mg tablet 10 mg PO DAILY 01/16/23 01/16/23 History (Lexapro) ferrous sulfate 325 mg (65 mg 325 mg PO QAM 01/16/23 01/16/23 History iron) tablet fluticasone 250 mcg-salmeterol 50 1 inh inhalation BID 01/16/23 01/16/23 History mcg/dose blistr powdr for inhalation (Advair Diskus) levetiracetam 750 mg tablet 750 mg PO BID 01/16/23 01/16/23 History (Keppra) mupirocin 2 % topical ointment 1 applic topical TID 01/16/23 01/16/23 History orlistat 120 mg capsule (Xenical) 120 mg PO TIDM 01/16/23 01/16/23 History rizatriptan 10 mg disintegrating 10 mg translingual DIRECTED PRN 01/16/23 01/16/23 History tablet Migraine Headache sucralfate 1 gram tablet (Carafate) 1 g PO ACHS 01/16/23 01/16/23 History Past Med/Surg History Medical History GERD (gastroesophageal reflux disease) Hiatal hernia Surgical History No pertinent past surgical history Social History Smoking Status: Current every day smoker Tobacco Type: Cigarettes Second Hand Exposure: Yes; Do You Dip or Chew Tobacco: No; Hx Alcohol Use: No Hx Substance Use: No Preferred Language: Marshallese Communication Ability: Effective Actuarial Associate Required: No Beliefs That Will Affect Care: None Current Living Situation: Spouse Other Information That Helps Us Care for You: No Feels Safe at Home: Yes Safety Concerns: Feels Safe At This Time Review of Systems Review of Systems: As per HPI, all other systems reviewed and negative Physical Exam Physical Exam: GENERAL: Slightly uncomfortable, obese, no respiratory distress SKIN: Normal color, warm HEENT: pink palpebral conjunctivae, no ptosis, dry buccal mucosa NECK : Supple, short neck, no tenderness CHEST : Decreased breath sounds, no tenderness HEART : RRR, no obvious murmurs ABDOMEN: Some distention, epigastric tenderness EXTREMITIES : Minimal LE swelling, no LE tenderness, no other conspicuous deformities noted NEUROLOGIC : Coherent, no facial asymmetry, no other gross focality Results & Data Results & Data Vital Signs (Past 12 Hours) Vital Signs Temp Pulse Pulse Resp BP BP Pulse Ox 01/17/23 00:13 62 16 145/84 H 95 01/16/23 21:40 98 01/16/23 21:21 36.7 C 88 18 132/79 95 O2 Del Method 01/17/23 00:13 Room Air 01/16/23 21:40 Room Air 01/16/23 21:21 Room Air Laboratory Results Laboratory Results WBC 21.02 K/ul (4.8-10.8) H 01/16/23 21:50 RBC 3.73 M/uL (4.20-5.40) L 01/16/23 21:50 Hgb 11.9 g/dl (12.0-16.0) L 01/16/23 21:50 Hct 34.7 % (37.0-47.0) L 01/16/23 21:50 MCV 93.0 fL (80.0-100.0) 01/16/23 21:50 MCH 31.9 pg (25.0-34.0) 01/16/23 21:50 MCHC 34.3 g/dL (32.0-36.0) 01/16/23 21:50 RDW Std Deviation 45.0 fL (36.4-46.3) 01/16/23 21:50 RDW Coeff of Tejal 13.2 % (11.5-14.5) 01/16/23 21:50 Plt Count 215 K/uL (130-400) 01/16/23 21:50 MPV 10.4 fL (9.4-12.4) 01/16/23 21:50 Immature Gran % (Auto) 1.5 % 01/16/23 21:50 Neut % (Auto) 79.6 % 01/16/23 21:50 Lymph % (Auto) 11.7 % 01/16/23 21:50 Rowan % (Auto) 7.0 % 01/16/23 21:50 Eos % (Auto) 0.0 % 01/16/23 21:50 Baso % (Auto) 0.2 % 01/16/23 21:50 Neut # (Auto) 16.73 K/uL (1.40-6.50) H 01/16/23 21:50 Lymph # (Auto) 2.45 K/uL (1.2-3.4) 01/16/23 21:50 Rowan # (Auto) 1.48 K/uL (0.11-0.59) H 01/16/23 21:50 Eos # (Auto) 0.00 K/uL (0-0.50) 01/16/23 21:50 Baso # (Auto) 0.04 K/uL (0-0.2) 01/16/23 21:50 Immature Gran # (Auto) 0.32 K/uL (0.01-0.20) H 01/16/23 21:50 Sodium 142 mmol/L (136-145) 01/16/23 21:50 Potassium 3.2 mmol/L (3.5-5.1) L 01/16/23 21:50 Chloride 110 mmol/L (98-107) H 01/16/23 21:50 Carbon Dioxide 26 mmol/L (21-32) 01/16/23 21:50 Anion Gap 6 (3-11) 01/16/23 21:50 BUN 10 mg/dl (6-23) 01/16/23 21:50 Creatinine 0.62 mg/dl (0.6-1.2) 01/16/23 21:50 Est Cr Clr Drug Dosing 115.7 ml/min 01/16/23 21:50 Est GFR ( Amer) 121.0 ml/min 01/16/23 21:50 Est GFR (Non-Af Amer) 104.4 ml/min 01/16/23 21:50 BUN/Creatinine Ratio 16.1 (10-20) 01/16/23 21:50 Glucose 177 mg/dl (70-99(Fasting)) H 01/16/23 21:50 Lactate 0.8 mmol/L (0.4-2.0) 01/17/23 00:05 Calcium 8.3 mg/dl (8.6-10.3) L 01/16/23 21:50 Magnesium 2.0 mg/dl (1.7-2.4) 01/16/23 21:50 Total Bilirubin 0.2 mg/dl (0.2-1.0) 01/16/23 21:50 AST 9 U/L (13-39) L 01/16/23 21:50 ALT 13 U/L (7-52) 01/16/23 21:50 Alkaline Phosphatase 68 U/L (34-104) 01/16/23 21:50 Troponin I High Sens < 2.3 pg/ml (0-14) 01/16/23 21:50 B-Natriuretic Peptide 268 pg/ml (0-100) H 01/17/23 00:06 Total Protein 6.2 gm/dl (6.0-8.3) 01/16/23 21:50 Albumin 3.5 gm/dl (3.4-5.0) 01/16/23 21:50 Globulin 2.7 gm/dl (2.5-4.0) 01/16/23 21:50 Albumin/Globulin Ratio 1.3 (0.9-2) 01/16/23 21:50 Lipase 13 U/L (11-82) 01/16/23 21:50 Procalcitonin < 0.05 ng/ml (0-0.5) 01/16/23 21:50 Urine Color Yellow 01/16/23 Unknown Urine Appearance Clear (Clear) 01/16/23 Unknown Urine pH 6.5 (4.5-7.5) 01/16/23 Unknown Ur Specific [place] 1.006 (1.000-1.030) 01/16/23 Unknown Urine Protein Negative (Negative) 01/16/23 Unknown Urine Glucose (UA) Negative (Negative) 01/16/23 Unknown Urine Ketones Negative (Negative) 01/16/23 Unknown Urine Blood Negative (Negative) 01/16/23 Unknown Urine Nitrite Negative (Negative) 01/16/23 Unknown Urine Bilirubin Negative (Negative) 01/16/23 Unknown Urine Urobilinogen Negative (Negative) 01/16/23 Unknown Ur Leukocyte Esterase Negative (Negative) 01/16/23 Unknown Adenovirus (PCR) Not Detected (NotDetected) 01/16/23 21:55 B. pertussis DNA (PCR) Not Detected (NotDetected) 01/16/23 21:55 B.parapertussis DNA PCR Not Detected (NotDetected) 01/16/23 21:55 Lyme Disease IgG Ab Negative (Negative) 01/16/23 21:50 Lyme Disease IgM Ab Equivocal (Negative) A 01/16/23 21:50 C. pneumoniae DNA (PCR) Not Detected (NotDetected) 01/16/23 21:55 Coronavirus OC43 (PCR) Not Detected (NotDetected) 01/16/23 21:55 Coronavirus HKU1 (PCR) Not Detected (NotDetected) 01/16/23 21:55 Coronavirus 229E (PCR) Not Detected (NotDetected) 01/16/23 21:55 SARS-CoV-2 (PCR) Not Detected (NotDetected) 01/16/23 21:55 Coronavirus NL63 (PCR) Not Detected (NotDetected) 01/16/23 21:55 Human Metapneumovir PCR Not Detected (NotDetected) 01/16/23 21:55 Influenza Type A (PCR) Not Detected (NotDetected) 01/16/23 21:55 Influenza Type B (PCR) Not Detected (NotDetected) 01/16/23 21:55 M. pneumoniae (PCR) Not Detected (NotDetected) 01/16/23 21:55 Parainfluenza 1 (PCR) Not Detected (NotDetected) 01/16/23 21:55 Parainfluenza 2 (PCR) Not Detected (NotDetected) 01/16/23 21:55 Parainfluenza 3 (PCR) Not Detected (NotDetected) 01/16/23 21:55 Parainfluenza 4 (PCR) Not Detected (NotDetected) 01/16/23 21:55 RSV (PCR) Not Detected (NotDetected) 01/16/23 21:55 Entero/Rhino (PCR) Not Detected (NotDetected) 01/16/23 21:55 Impressions Abdomen/Pelvis CT 01/16/23 22:56 Exam(s): CT ABDOMEN + PELVIS With Contrast IV Amt: 93 ml optiray 320 EXAM: CT Abdomen and Pelvis With Intravenous Contrast CLINICAL HISTORY: Reason for exam: ab pain. TECHNIQUE: Axial computed tomography images of the abdomen and pelvis with intravenous contrast. CTDI is 27.88 mGy and DLP is 1415.99 mGy-cm. Automated exposure control was utilized for the study. A dose lowering technique was utilized adhering to the principles of ALARA. CONTRAST: Patient received 93 ml optiray 320 of IV contrast COMPARISON: 01/12/2022. FINDINGS: Lung bases: Multilobar consolidation involving the bilateral lower lobes, right middle lobe consistent with multifocal pneumonia. Minimal atelectasis of the lingular lobe. Pleural space: Trace bilateral pleural effusions versus pleural thickening. Mediastinum: Mild hiatal hernia. ABDOMEN: Liver: Unremarkable. No mass. Gallbladder and bile ducts: Unremarkable. No calcified stones. No ductal dilation. Pancreas: Unremarkable. No mass. No ductal dilation. Spleen: Unremarkable. No splenomegaly. Adrenals: Unremarkable. No mass. Kidneys and ureters: Unremarkable. No solid mass. No hydronephrosis. Stomach and bowel: Moderate to abundant fecal debris within the colon, cannot exclude mild constipation. No obstruction. No mucosal thickening. PELVIS: Appendix: Normal appendix. Bladder: Unremarkable. No mass. Reproductive: Anteverted uterus. ABDOMEN and PELVIS: Intraperitoneal space: Unremarkable. No free air. No significant fluid collection. Bones/joints: Mild spondylosis throughout the lumbar spine. No acute fracture. No dislocation. Soft tissues: Unremarkable. Vasculature: Unremarkable. No abdominal aortic aneurysm. Lymph nodes: Unremarkable. No enlarged lymph nodes. IMPRESSION: 1. Multilobar pneumonia. 2. Mild hiatal hernia. 3. Possible constipation. No acute appendicitis or bowel obstruction. Electronically signed by: Radha Brumfield MD 01/16/23 23:39 PM Diagnostic Findings Chest x-ray per my interpretation atelectasis, minimal congestion EKG as per my interpretation : Rate 100, NSR, normal axis, no ischemia
[2023-01-17] MEDS ORDERED: levETIRAcetam ORAL SOLN 100MG/ML PO STA (00:51)
[2023-01-17] MEDS ORDERED: oxyCODONE HCL IR 5 MG TAB (IMMEDIATE RELEASE) PO PRN (00:56)
[2023-01-17] MEDS ORDERED: PROMETHAZINE HCL 12.5 MG in SODIUM CHLORIDE 0.9% 50 ML IV PRN (00:56)
[2023-01-17] MEDS ORDERED: ACETAMINOPHEN 325 MG TAB PO PRN ×2 (00:56→04:10)
[2023-01-17] MEDS: NICOTINE 7 MG/24 HR TDSY TD SCH ×2 (01:32→17:56)
[2023-01-17] MEDS ORDERED: GADOBUTROL 65ML VIAL IV ONE (02:11)
[2023-01-17 02:13] LABS: Amphetamines+Metham, Urine Neg (Neg); Barbiturates, Urine Neg (Neg); Benzodiazepine, Urine Neg (Neg); Cocaine, Urine Neg (Neg); MDMA (Ecstacy), Urine Neg (Neg); Methadone, Urine Neg (Neg); Opiate, Urine Neg (Neg); Phencyclidine, Urine Neg (Neg)
--- NOTE | 2023-01-17 03:20 | Magnetic Resonance Report ---
Exam(s): MRI HEAD W/WO Contrast IV Amt: 9mL Gadavist IV EXAM: MR Head Without and With Intravenous Contrast CLINICAL HISTORY: Reason for exam: worsening migraine. TECHNIQUE: Magnetic resonance images of the head/brain without and with intravenous contrast in multiple planes. CONTRAST: Patient received 9mL Gadavist IV of IV contrast COMPARISON: CT brain 12/30/2022. FINDINGS: Brain: Unremarkable. No restricted diffusion abnormality to suggest acute stroke. No intracranial hemorrhage. No abnormal enhancement is demonstrated. No intracranial lesion. Ventricles: Unremarkable. No ventriculomegaly. Bones/joints: Unremarkable. Sinuses: Mild mucosal thickening involving the bilateral maxillary sinuses, right more than left, likely sequela of chronic sinusitis. Otherwise clear paranasal sinuses. Mastoid air cells: Unremarkable as visualized. No mastoid effusion. Orbits: Unremarkable as visualized. IMPRESSION: 1. Normal MRI brain with no acute stroke or intracranial hemorrhage. No distinct intracranial lesion. 2. Sequela of the maxillary sinus disease as described. Electronically signed by: Radha Brumfield MD 01/17/23 03:19 AM
[2023-01-17] MEDS: DOCUSATE SODIUM/SENNA 50/8.6MG TAB PO SCH ×2 (04:23→08:14)
[2023-01-17] MEDS: POTASSIUM CHLORIDE / WTR 10 MEQ/100 ML PLCT IV SCH ×3 (04:36→06:24)
[2023-01-17] MEDS: PIPERACILLIN/TAZOBACTAM 4.5 GM in DEXTROSE 5% 100 ML IV SCH ×3 (04:56→21:28)
[2023-01-17 05:52] LABS: Basophils # (auto) 0.02 K/uL (0-0.2); Basophils % (auto) 0.1 %; Eosinophils # (auto) 0.02 K/uL (0-0.50); Eosinophils % (auto) 0.1 %; Hematocrit (blood only) 33.5 % (37.0-47.0); Hemoglobin 11.3 g/dl (12.0-16.0); Immature Granulocytes # (auto) 0.17 K/uL (0.01-0.20); Immature Granulocytes % (auto) 0.9 %; Lymphocytes # (auto) 3.61 K/uL (1.2-3.4); Lymphocytes % (auto) 18.4 %; Mean Corpuscular Hemoglobin 31.4 pg (25.0-34.0); Mean Corpuscular Hgb Conc 33.7 g/dL (32.0-36.0); Mean Corpuscular Volume 93.1 fL (80.0-100.0); Monocytes # (auto) 1.79 K/uL (0.11-0.59); Monocytes % (auto) 9.1 %; Neutrophils # (auto) 14.04 K/uL (1.40-6.50); Neutrophils % (auto) 71.4 %; Platelet Count 204 K/uL (130-400); RDW Coefficient of Variation 13.2 % (11.5-14.5); RDW Standard Deviation 45.3 fL (36.4-46.3); White Blood Count 19.65 K/ul (4.8-10.8)
[2023-01-17 06:03] LABS: BUN Creatinine Ratio 12.1 (10-20); Calcium 7.7 mg/dl (8.6-10.3); Creatinine Clr Calc Pharmacy 124.1 ml/min; Est GFR (African American) 123.7 ml/min; Est GFR (Non-African American) 106.7 ml/min; Potassium 3.9 mmol/L (3.5-5.1)
--- NOTE | 2023-01-17 07:12 | XRay Report ---
XR chest 1V portable HISTORY: cough COMPARISON: Chest 11/20/2022. FINDINGS: There are low lung volumes. No pneumothorax. No pleural effusions. The heart is top normal in size. There is a small hiatus hernia. Cervical spinal fusion hardware is again noted. Faint patchy bibasilar densities are noted. IMPRESSION: Faint patchy bibasilar densities. This likely represents a pneumonia. ACT 112: Negative or not required by law. Electronically signed by: Sebastien Cerda M.D. 01/17/2023 7:10 AM
[2023-01-17] MEDS: levETIRAcetam 250 MG TAB PO SCH ×2 (08:11→20:40)
[2023-01-17] MEDS: ATORVASTATIN 40 MG TAB PO SCH (08:11)
[2023-01-17] MEDS: LOSARTAN POTASSIUM 50 MG TAB PO SCH (08:11)
[2023-01-17] MEDS: EZETIMIBE 10 MG TABLET PO SCH (08:11)
[2023-01-17] MEDS: SUCRALFATE 1 GM TAB PO SCH ×4 (08:11→20:40)
[2023-01-17] MEDS: ESCITALOPRAM OXALATE 10 MG TAB PO SCH (08:12)
[2023-01-17] MEDS: PANTOprazole 40 MG in SYRINGE 0 ML IV SCH ×2 (08:12→20:40)
[2023-01-17] MEDS ORDERED: dexAMETHasone 4 MG TAB PO SCH (09:00)
[2023-01-17] MEDS ORDERED: NON-FORMULARY MEDICATION (Riboflavin (Vitamin B2) 400 mg Tablet) PO SCH (09:00)
--- NOTE | 2023-01-17 09:20 | Gastrointestinal Consultation ---
Date of Consultation January 17, 2023 Assessment & Plan (1) Nausea & vomitin52 year old female with history of COPD, hypertension, hyperlipidemia, migraine, history seizure/psychogenic nonepileptic seizures, HCV treated, anxiety/PTSD/mood disorder/borderline personality disorder, hiatal hernia, hyperprolactinemia, past alcohol abuse, ongoing tobacco abuse admitted through the ED w/ abd pain, nausea/vomiting and question of dark emesis. No plan for inpatient endoscopic evaluation given hemodynamic stability, stable HGB overnight w/ normal BUN Plan for OP EGD/Colon PO PPI BID x 3 months Can use Carafate slurry QID x 10 days Trend H&H Monitor and document GI output Will sign off, recall as needed. Thank you for allowing us to participate in the care of this patient. Please call with any acute changes, questions or concerns. Please see addendum below with additional recommendation from my supervising physician. Supervising Physician Co-Signing Physician Notes I have seen and examined the patient with TISHA Grimaldo whose note reflects our findings and plan. Outpatient EGD and colonoscopy. History of Present Illness Reason for Consultation: ?upper GI bleed Requesting Physician: Gloria Attending Physician: Jayjay Castro MD History of Present Illness 52 year old female with history of COPD, hypertension, hyperlipidemia, migraine, history seizure/psychogenic nonepileptic seizures, HCV treated, anxiety/PTSD/mood disorder/borderline personality disorder, hiatal hernia, hyperprolactinemia, past alcohol abuse, ongoing tobacco abuse admitted through the ED w/ abd pain, nausea/vomiting - GI asked to evaluate. She is a poor historian. Nods off numerous times during rounds this AM. She reports chronic abd pain w/ intermittent episodes of nausea/vomiting. She said this has been goi ng on for "forever." Alternating bowel habist at baseline. There was report of bloody emesis but she is unsure of this. She denies any black or bloody stools. No fever, chills, CP, SOB. HGB 11.9 --> 11.3 BUN 7 CTAP 2022: Multilobar pneumonia. 2. Mild hiatal hernia. 3. Possible constipation. No acute appendicitis or bowel obstruction. EGD 2021: Benign-appearing esophageal stenosis. Dilated. - Z-line regular, 35 cm from the incisors. Biopsied. - Small hiatal hernia. - Normal stomach. - Normal examined duodenum. EGD 2017: Web in the lower third of the esophagus. Dilated to 18 mm. Biopsied. - Z-line regular, 35 cm from the incisors. - Small hiatal hernia. - Gastritis. Biopsied. - Normal examined duodenum. EGD 2015: Normal esophagus. Dilated empirically. - Normal stomach. - Normal examined duodenum. - No specimens collected. Colonoscopy 2014: - The examined portion of the ileum was normal. - The colon mucosa is normal. - The distal rectum and anal verge are normal on retroflexion view. Allergies Allergy/AdvReac Type Severity Reaction Status Date / Time No Known Allergies Allergy Verified 01/16/23 22:08 Home Medications Medication Instructions Recorded Confirmed Type atorvastatin 80 mg tablet 80 mg PO DAILY 01/12/22 01/16/23 History ezetimibe 10 mg tablet (Zetia) 10 mg PO DAILY 01/12/22 01/16/23 History famotidine 20 mg tablet 20 mg PO BID 01/12/22 01/16/23 History hydroxyzine pamoate 50 mg capsule 50 mg PO TID PRN Anxiety 01/12/22 01/16/23 History losartan 50 mg tablet 50 mg PO DAILY 01/12/22 01/16/23 History magnesium oxide 400 mg PO DAILY 01/12/22 01/16/23 History omeprazole 40 mg capsule,delayed 40 mg PO BID 01/12/22 01/16/23 History release ondansetron 4 mg disintegrating 4 mg PO TID PRN NAUSEA/VOMITING 01/12/22 01/16/23 History tablet riboflavin (vitamin B2) 400 mg 400 mg PO DAILY 01/12/22 01/16/23 History tablet trazodone 100 mg tablet 100 mg PO HS 01/12/22 01/16/23 History albuterol sulfate 90 mcg/actuation 2 puff inhalation Q4H PRN 01/16/23 01/16/23 History aerosol inhaler COUGH/SHORT OF BREATH/WHEEZING cefuroxime axetil 500 mg tablet 500 mg PO BID 01/16/23 01/16/23 History chlorpromazine 100 mg tablet 100 mg PO HS 01/16/23 01/16/23 History cholecalciferol (vitamin D3) 125 125 mcg PO WK 01/16/23 01/16/23 History mcg (5,000 unit) tablet (Vitamin D3) clonazepam 1 mg tablet 1 mg PO HS 01/16/23 01/16/23 History dexamethasone 4 mg tablet 4 mg PO DAILY 01/16/23 01/16/23 History diphenhydramine HCl 25 mg capsule 25 mg PO HS PRN IF NEEDED PER EXT 01/16/23 01/16/23 History (Banophen) MED HX. escitalopram oxalate 10 mg tablet 10 mg PO DAILY 01/16/23 01/16/23 History (Lexapro) ferrous sulfate 325 mg (65 mg 325 mg PO QAM 01/16/23 01/16/23 History iron) tablet fluticasone 250 mcg-salmeterol 50 1 inh inhalation BID 01/16/23 01/16/23 History mcg/dose blistr powdr for inhalation (Advair Diskus) levetiracetam 750 mg tablet 750 mg PO BID 01/16/23 01/16/23 History (Keppra) mupirocin 2 % topical ointment 1 applic topical TID 01/16/23 01/16/23 History orlistat 120 mg capsule (Xenical) 120 mg PO TIDM 01/16/23 01/16/23 History rizatriptan 10 mg disintegrating 10 mg translingual DIRECTED PRN 01/16/23 01/16/23 History tablet Migraine Headache sucralfate 1 gram tablet (Carafate) 1 g PO ACHS 01/16/23 01/16/23 History Patient History Medical History GERD (gastroesophageal reflux disease) Hiatal hernia Surgical History No pertinent past surgical history Social History Smoking Status: Current every day smoker Tobacco Type: Cigarettes Second Hand Exposure: Yes; Do You Dip or Chew Tobacco: No; Hx Alcohol Use: No Hx Substance Use: No Preferred Language: [place] Communication Ability: Effective Deep Submergence Vehicle Operator Required: No Beliefs That Will Affect Care: None Current Living Situation: Spouse Other Information That Helps Us Care for You: No Feels Safe at Home: Yes Safety Concerns: Feels Safe At This Time Review of Systems Review of Systems: All systems reviewed & are unremarkable except as noted in HPI & below Physical Exam Constitutional: WD/WN, vitals as above Respiratory: normal respiratory effort, lungs clear to auscultation Cardiovascular: Rate/Rhythm: regular rate and regular rhythm Gastrointestinal (Abdomen): normal bowel sounds, soft, nontender, no hepatosplenomegaly Skin: no rashes, warm and dry Results & Data Vital Signs (Past 12 Hours) Vital Signs Temp Pulse Pulse Pulse Resp BP BP 01/17/23 08:15 36.2 C L 92 H 18 133/84 01/17/23 07:31 55 L 01/17/23 03:54 66 01/17/23 03:24 36.4 C L 62 16 145/87 H 01/17/23 00:16 62 01/17/23 00:13 62 16 145/84 H 01/16/23 21:40 01/16/23 21:21 36.7 C 88 18 132/79 Pulse Ox O2 Del Method 01/17/23 08:15 92 Room Air 01/17/23 07:31 01/17/23 03:54 01/17/23 03:24 93 Room Air 01/17/23 00:16 01/17/23 00:13 95 Room Air 01/16/23 21:40 98 Room Air 01/16/23 21:21 95 Room Air Laboratory Results 01/17/23 01/17/23 01/17/23 Range/Units Unknown 05:31 05:31 WBC 19.65 H (4.8-10.8) K/ul RBC 3.60 L (4.20-5.40) M/uL Hgb 11.3 L (12.0-16.0) g/dl Hct 33.5 L (37.0-47.0) % MCV 93.1 (80.0-100.0) fL MCH 31.4 (25.0-34.0) pg MCHC 33.7 (32.0-36.0) g/dL RDW Std Deviation 45.3 (36.4-46.3) fL RDW Coeff of Tejal 13.2 (11.5-14.5) % Plt Count 204 (130-400) K/uL MPV 10.0 (9.4-12.4) fL Immature Gran % (Auto) 0.9 % Neut % (Auto) 71.4 % Lymph % (Auto) 18.4 % [place] % (Auto) 9.1 % Eos % (Auto) 0.1 % Baso % (Auto) 0.1 % Neut # (Auto) 14.04 H (1.40-6.50) K/uL Lymph # (Auto) 3.61 H (1.2-3.4) K/uL [place] # (Auto) 1.79 H (0.11-0.59) K/uL Eos # (Auto) 0.02 (0-0.50) K/uL Baso # (Auto) 0.02 (0-0.2) K/uL Immature Gran # (Auto) 0.17 (0.01-0.20) K/uL Sodium 141 (136-145) mmol/L Potassium 3.9 D (3.5-5.1) mmol/L Chloride 110 H (98-107) mmol/L Carbon Dioxide 27 (21-32) mmol/L Anion Gap 4 (3-11) BUN 7 (6-23) mg/dl Creatinine 0.58 L (0.6-1.2) mg/dl Est Cr Clr Drug Dosing 124.1 ml/min Est GFR ( Amer) 123.7 ml/min Est GFR (Non-Af Amer) 106.7 ml/min BUN/Creatinine Ratio 12.1 (10-20) Glucose 95 (70-99(Fasting)) mg/dl Estimat Average Glucose mg/dl Hemoglobin A1c (4.5-5.6) % Lactate (0.4-2.0) mmol/L Calcium 7.7 L (8.6-10.3) mg/dl Magnesium (1.7-2.4) mg/dl Total Bilirubin (0.2-1.0) mg/dl AST (13-39) U/L ALT (7-52) U/L Alkaline Phosphatase (34-104) U/L Troponin I High Sens (0-14) pg/ml B-Natriuretic Peptide (0-100) pg/ml Total Protein (6.0-8.3) gm/dl Albumin (3.4-5.0) gm/dl Globulin (2.5-4.0) gm/dl Albumin/Globulin Ratio (0.9-2) Lipase (11-82) U/L Procalcitonin (0-0.5) ng/ml Urine Color Urine Appearance (Clear) Urine pH (4.5-7.5) Ur Specific [place] (1.000-1.030) Urine Protein (Negative) Urine Glucose (UA) (Negative) Urine Ketones (Negative) Urine Blood (Negative) Urine Nitrite (Negative) Urine Bilirubin (Negative) Urine Urobilinogen (Negative) Ur Leukocyte Esterase (Negative) Nasal Screen MRSA (PCR) (Negative) Urine Opiates Screen Neg (Neg) Ur Methadone, Qual Neg (Neg) Urine Barbiturates Neg (Neg) Ur Phencyclidine (PCP) Neg (Neg) U Amphetamin/Meth Scrn Neg (Neg) MDMA (Ecstasy) Screen Neg (Neg) U Benzodiazepines Scrn Neg (Neg) Ur Cocaine Metabolite Neg (Neg) U Marijuana (THC) Screen Neg (Neg) Adenovirus (PCR) (NotDetected) B. pertussis DNA (PCR) (NotDetected) B.parapertussis DNA PCR (NotDetected) Lyme Disease IgG Ab (Negative) Lyme IgG (Western Blot) Lyme IgG 18 kDa Band Lyme IgG 23 kDa Band Lyme IgG 28 kDa Band Lyme IgG 30 kDa Band Lyme IgG 39 kDa Band Lyme IgG 41 kDa Band Lyme IgG 45 kDa Band Lyme IgG 58 kDa Band Lyme IgG 66 kDa Band Lyme IgG 93 kDa Band Lyme IgM Ab (WB) Lyme Disease IgM Ab (Negative) Lyme IgM 23 kDa Band Lyme IgM 39 kDa Band Lyme IgM 41 kDa Band C. pneumoniae DNA (PCR) (NotDetected) Coronavirus OC43 (PCR) (NotDetected) Coronavirus HKU1 (PCR) (NotDetected) Coronavirus 229E (PCR) (NotDetected) SARS-CoV-2 (PCR) (NotDetected) Coronavirus NL63 (PCR) (NotDetected) Human Metapneumovir PCR (NotDetected) Influenza Type A (PCR) (NotDetected) Influenza Type B (PCR) (NotDetected) M. pneumoniae (PCR) (NotDetected) Parainfluenza 1 (PCR) (NotDetected) Parainfluenza 2 (PCR) (NotDetected) Parainfluenza 3 (PCR) (NotDetected) Parainfluenza 4 (PCR) (NotDetected) RSV (PCR) (NotDetected) Entero/Rhino (PCR) (NotDetected) Blood Type Antibody Screen 01/17/23 01/17/23 01/17/23 Range/Units 05:31 05:31 00:06 WBC (4.8-10.8) K/ul RBC (4.20-5.40) M/uL Hgb (12.0-16.0) g/dl Hct (37.0-47.0) % MCV (80.0-100.0) fL MCH (25.0-34.0) pg MCHC (32.0-36.0) g/dL RDW Std Deviation (36.4-46.3) fL RDW Coeff of Tejal (11.5-14.5) % Plt Count (130-400) K/uL MPV (9.4-12.4) fL Immature Gran % (Auto) % Neut % (Auto) % Lymph % (Auto) % [place] % (Auto) % Eos % (Auto) % Baso % (Auto) % Neut # (Auto) (1.40-6.50) K/uL Lymph # (Auto) (1.2-3.4) K/uL [place] # (Auto) (0.11-0.59) K/uL Eos # (Auto) (0-0.50) K/uL Baso # (Auto) (0-0.2) K/uL Immature Gran # (Auto) (0.01-0.20) K/uL Sodium (136-145) mmol/L Potassium (3.5-5.1) mmol/L Chloride (98-107) mmol/L Carbon Dioxide (21-32) mmol/L Anion Gap (3-11) BUN (6-23) mg/dl Creatinine (0.6-1.2) mg/dl Est Cr Clr Drug Dosing ml/min Est GFR ( Amer) ml/min Est GFR (Non-Af Amer) ml/min BUN/Creatinine Ratio (10-20) Glucose (70-99(Fasting)) mg/dl Estimat Average Glucose 114 mg/dl Hemoglobin A1c 5.6 (4.5-5.6) % Lactate (0.4-2.0) mmol/L Calcium (8.6-10.3) mg/dl Magnesium (1.7-2.4) mg/dl Total Bilirubin (0.2-1.0) mg/dl AST (13-39) U/L ALT (7-52) U/L Alkaline Phosphatase (34-104) U/L Troponin I High Sens (0-14) pg/ml B-Natriuretic Peptide 268 H (0-100) pg/ml Total Protein (6.0-8.3) gm/dl Albumin (3.4-5.0) gm/dl Globulin (2.5-4.0) gm/dl Albumin/Globulin Ratio (0.9-2) Lipase (11-82) U/L Procalcitonin (0-0.5) ng/ml Urine Color Urine Appearance (Clear) Urine pH (4.5-7.5) Ur Specific [place] (1.000-1.030) Urine Protein (Negative) Urine Glucose (UA) (Negative) Urine Ketones (Negative) Urine Blood (Negative) Urine Nitrite (Negative) Urine Bilirubin (Negative) Urine Urobilinogen (Negative) Ur Leukocyte Esterase (Negative) Nasal Screen MRSA (PCR) (Negative) Urine Opiates Screen (Neg) Ur Methadone, Qual (Neg) Urine Barbiturates (Neg) Ur Phencyclidine (PCP) (Neg) U Amphetamin/Meth Scrn (Neg) MDMA (Ecstasy) Screen (Neg) U Benzodiazepines Scrn (Neg) Ur Cocaine Metabolite (Neg) U Marijuana (THC) Screen (Neg) Adenovirus (PCR) (NotDetected) B. pertussis DNA (PCR) (NotDetected) B.parapertussis DNA PCR (NotDetected) Lyme Disease IgG Ab (Negative) Lyme IgG (Western Blot) Lyme IgG 18 kDa Band Lyme IgG 23 kDa Band Lyme IgG 28 kDa Band Lyme IgG 30 kDa Band Lyme IgG 39 kDa Band Lyme IgG 41 kDa Band Lyme IgG 45 kDa Band Lyme IgG 58 kDa Band Lyme IgG 66 kDa Band Lyme IgG 93 kDa Band Lyme IgM Ab (WB) Lyme Disease IgM Ab (Negative) Lyme IgM 23 kDa Band Lyme IgM 39 kDa Band Lyme IgM 41 kDa Band C. pneumoniae DNA (PCR) (NotDetected) Coronavirus OC43 (PCR) (NotDetected) Coronavirus HKU1 (PCR) (NotDetected) Coronavirus 229E (PCR) (NotDetected) SARS-CoV-2 (PCR) (NotDetected) Coronavirus NL63 (PCR) (NotDetected) Human Metapneumovir PCR (NotDetected) Influenza Type A (PCR) (NotDetected) Influenza Type B (PCR) (NotDetected) M. pneumoniae (PCR) (NotDetected) Parainfluenza 1 (PCR) (NotDetected) Parainfluenza 2 (PCR) (NotDetected) Parainfluenza 3 (PCR) (NotDetected) Parainfluenza 4 (PCR) (NotDetected) RSV (PCR) (NotDetected) Entero/Rhino (PCR) (NotDetected) Blood Type A Positive Antibody Screen NEGATIVE 01/17/23 01/16/23 01/16/23 Range/Units 00:05 Unknown 23:50 WBC (4.8-10.8) K/ul RBC (4.20-5.40) M/uL Hgb (12.0-16.0) g/dl Hct (37.0-47.0) % MCV (80.0-100.0) fL MCH (25.0-34.0) pg MCHC (32.0-36.0) g/dL RDW Std Deviation (36.4-46.3) fL RDW Coeff of Tejal (11.5-14.5) % Plt Count (130-400) K/uL MPV (9.4-12.4) fL Immature Gran % (Auto) % Neut % (Auto) % Lymph % (Auto) % [place] % (Auto) % Eos % (Auto) % Baso % (Auto) % Neut # (Auto) (1.40-6.50) K/uL Lymph # (Auto) (1.2-3.4) K/uL [place] # (Auto) (0.11-0.59) K/uL Eos # (Auto) (0-0.50) K/uL Baso # (Auto) (0-0.2) K/uL Immature Gran # (Auto) (0.01-0.20) K/uL Sodium (136-145) mmol/L Potassium (3.5-5.1) mmol/L Chloride (98-107) mmol/L Carbon Dioxide (21-32) mmol/L Anion Gap (3-11) BUN (6-23) mg/dl Creatinine (0.6-1.2) mg/dl Est Cr Clr Drug Dosing ml/min Est GFR ( Amer) ml/min Est GFR (Non-Af Amer) ml/min BUN/Creatinine Ratio (10-20) Glucose (70-99(Fasting)) mg/dl Estimat Average Glucose mg/dl Hemoglobin A1c (4.5-5.6) % Lactate 0.8 (0.4-2.0) mmol/L Calcium (8.6-10.3) mg/dl Magnesium (1.7-2.4) mg/dl Total Bilirubin (0.2-1.0) mg/dl AST (13-39) U/L ALT (7-52) U/L Alkaline Phosphatase (34-104) U/L Troponin I High Sens (0-14) pg/ml B-Natriuretic Peptide (0-100) pg/ml Total Protein (6.0-8.3) gm/dl Albumin (3.4-5.0) gm/dl Globulin (2.5-4.0) gm/dl Albumin/Globulin Ratio (0.9-2) Lipase (11-82) U/L Procalcitonin (0-0.5) ng/ml Urine Color Yellow Urine Appearance Clear (Clear) Urine pH 6.5 (4.5-7.5) Ur Specific [place] 1.006 (1.000-1.030) Urine Protein Negative (Negative) Urine Glucose (UA) Negative (Negative) Urine Ketones Negative (Negative) Urine Blood Negative (Negative) Urine Nitrite Negative (Negative) Urine Bilirubin Negative (Negative) Urine Urobilinogen Negative (Negative) Ur Leukocyte Esterase Negative (Negative) Nasal Screen MRSA (PCR) Negative (Negative) Urine Opiates Screen (Neg) Ur Methadone, Qual (Neg) Urine Barbiturates (Neg) Ur Phencyclidine (PCP) (Neg) U Amphetamin/Meth Scrn (Neg) MDMA (Ecstasy) Screen (Neg) U Benzodiazepines Scrn (Neg) Ur Cocaine Metabolite (Neg) U Marijuana (THC) Screen (Neg) Adenovirus (PCR) (NotDetected) B. pertussis DNA (PCR) (NotDetected) B.parapertussis DNA PCR (NotDetected) Lyme Disease IgG Ab (Negative) Lyme IgG (Western Blot) Lyme IgG 18 kDa Band Lyme IgG 23 kDa Band Lyme IgG 28 kDa Band Lyme IgG 30 kDa Band Lyme IgG 39 kDa Band Lyme IgG 41 kDa Band Lyme IgG 45 kDa Band Lyme IgG 58 kDa Band Lyme IgG 66 kDa Band Lyme IgG 93 kDa Band Lyme IgM Ab (WB) Lyme Disease IgM Ab (Negative) Lyme IgM 23 kDa Band Lyme IgM 39 kDa Band Lyme IgM 41 kDa Band C. pneumoniae DNA (PCR) (NotDetected) Coronavirus OC43 (PCR) (NotDetected) Coronavirus HKU1 (PCR) (NotDetected) Coronavirus 229E (PCR) (NotDetected) SARS-CoV-2 (PCR) (NotDetected) Coronavirus NL63 (PCR) (NotDetected) Human Metapneumovir PCR (NotDetected) Influenza Type A (PCR) (NotDetected) Influenza Type B (PCR) (NotDetected) M. pneumoniae (PCR) (NotDetected) Parainfluenza 1 (PCR) (NotDetected) Parainfluenza 2 (PCR) (NotDetected) Parainfluenza 3 (PCR) (NotDetected) Parainfluenza 4 (PCR) (NotDetected) RSV (PCR) (NotDetected) Entero/Rhino (PCR) (NotDetected) Blood Type Antibody Screen 01/16/23 01/16/23 01/16/23 Range/Units 21:55 21:50 21:50 WBC (4.8-10.8) K/ul RBC (4.20-5.40) M/uL Hgb (12.0-16.0) g/dl Hct (37.0-47.0) % MCV (80.0-100.0) fL MCH (25.0-34.0) pg MCHC (32.0-36.0) g/dL RDW Std Deviation (36.4-46.3) fL RDW Coeff of Tejal (11.5-14.5) % Plt Count (130-400) K/uL MPV (9.4-12.4) fL Immature Gran % (Auto) % Neut % (Auto) % Lymph % (Auto) % [place] % (Auto) % Eos % (Auto) % Baso % (Auto) % Neut # (Auto) (1.40-6.50) K/uL Lymph # (Auto) (1.2-3.4) K/uL [place] # (Auto) (0.11-0.59) K/uL Eos # (Auto) (0-0.50) K/uL Baso # (Auto) (0-0.2) K/uL Immature Gran # (Auto) (0.01-0.20) K/uL Sodium (136-145) mmol/L Potassium (3.5-5.1) mmol/L Chloride (98-107) mmol/L Carbon Dioxide (21-32) mmol/L Anion Gap (3-11) BUN (6-23) mg/dl Creatinine (0.6-1.2) mg/dl Est Cr Clr Drug Dosing ml/min Est GFR ( Amer) ml/min Est GFR (Non-Af Amer) ml/min BUN/Creatinine Ratio (10-20) Glucose (70-99(Fasting)) mg/dl Estimat Average Glucose mg/dl Hemoglobin A1c (4.5-5.6) % Lactate (0.4-2.0) mmol/L Calcium (8.6-10.3) mg/dl Magnesium (1.7-2.4) mg/dl Total Bilirubin (0.2-1.0) mg/dl AST (13-39) U/L ALT (7-52) U/L Alkaline Phosphatase (34-104) U/L Troponin I High Sens (0-14) pg/ml B-Natriuretic Peptide (0-100) pg/ml Total Protein (6.0-8.3) gm/dl Albumin (3.4-5.0) gm/dl Globulin (2.5-4.0) gm/dl Albumin/Globulin Ratio (0.9-2) Lipase (11-82) U/L Procalcitonin < 0.05 (0-0.5) ng/ml Urine Color Urine Appearance (Clear) Urine pH (4.5-7.5) Ur Specific [place] (1.000-1.030) Urine Protein (Negative) Urine Glucose (UA) (Negative) Urine Ketones (Negative) Urine Blood (Negative) Urine Nitrite (Negative) Urine Bilirubin (Negative) Urine Urobilinogen (Negative) Ur Leukocyte Esterase (Negative) Nasal Screen MRSA (PCR) (Negative) Urine Opiates Screen (Neg) Ur Methadone, Qual (Neg) Urine Barbiturates (Neg) Ur Phencyclidine (PCP) (Neg) U Amphetamin/Meth Scrn (Neg) MDMA (Ecstasy) Screen (Neg) U Benzodiazepines Scrn (Neg) Ur Cocaine Metabolite (Neg) U Marijuana (THC) Screen (Neg) Adenovirus (PCR) Not Detected (NotDetected) B. pertussis DNA (PCR) Not Detected (NotDetected) B.parapertussis DNA PCR Not Detected (NotDetected) Lyme Disease IgG Ab (Negative) Lyme IgG (Western Blot) Pending Lyme IgG 18 kDa Band Pending Lyme IgG 23 kDa Band Pending Lyme IgG 28 kDa Band Pending Lyme IgG 30 kDa Band Pending Lyme IgG 39 kDa Band Pending Lyme IgG 41 kDa Band Pending Lyme IgG 45 kDa Band Pending Lyme IgG 58 kDa Band Pending Lyme IgG 66 kDa Band Pending Lyme IgG 93 kDa Band Pending Lyme IgM Ab (WB) Pending Lyme Disease IgM Ab (Negative) Lyme IgM 23 kDa Band Pending Lyme IgM 39 kDa Band Pending Lyme IgM 41 kDa Band Pending C. pneumoniae DNA (PCR) Not Detected (NotDetected) Coronavirus OC43 (PCR) Not Detected (NotDetected) Coronavirus HKU1 (PCR) Not Detected (NotDetected) Coronavirus 229E (PCR) Not Detected (NotDetected) SARS-CoV-2 (PCR) Not Detected (NotDetected) Coronavirus NL63 (PCR) Not Detected (NotDetected) Human Metapneumovir PCR Not Detected (NotDetected) Influenza Type A (PCR) Not Detected (NotDetected) Influenza Type B (PCR) Not Detected (NotDetected) M. pneumoniae (PCR) Not Detected (NotDetected) Parainfluenza 1 (PCR) Not Detected (NotDetected) Parainfluenza 2 (PCR) Not Detected (NotDetected) Parainfluenza 3 (PCR) Not Detected (NotDetected) Parainfluenza 4 (PCR) Not Detected (NotDetected) RSV (PCR) Not Detected (NotDetected) Entero/Rhino (PCR) Not Detected (NotDetected) Blood Type Antibody Screen 01/16/23 01/16/23 01/16/23 Range/Units 21:50 21:50 21:50 WBC 21.02 H (4.8-10.8) K/ul RBC 3.73 L (4.20-5.40) M/uL Hgb 11.9 L (12.0-16.0) g/dl Hct 34.7 L (37.0-47.0) % MCV 93.0 (80.0-100.0) fL MCH 31.9 (25.0-34.0) pg MCHC 34.3 (32.0-36.0) g/dL RDW Std Deviation 45.0 (36.4-46.3) fL RDW Coeff of Tejal 13.2 (11.5-14.5) % Plt Count 215 (130-400) K/uL MPV 10.4 (9.4-12.4) fL Immature Gran % (Auto) 1.5 % Neut % (Auto) 79.6 % Lymph % (Auto) 11.7 % [place] % (Auto) 7.0 % Eos % (Auto) 0.0 % Baso % (Auto) 0.2 % Neut # (Auto) 16.73 H (1.40-6.50) K/uL Lymph # (Auto) 2.45 (1.2-3.4) K/uL [place] # (Auto) 1.48 H (0.11-0.59) K/uL Eos # (Auto) 0.00 (0-0.50) K/uL Baso # (Auto) 0.04 (0-0.2) K/uL Immature Gran # (Auto) 0.32 H (0.01-0.20) K/uL Sodium 142 (136-145) mmol/L Potassium 3.2 L (3.5-5.1) mmol/L Chloride 110 H (98-107) mmol/L Carbon Dioxide 26 (21-32) mmol/L Anion Gap 6 (3-11) BUN 10 (6-23) mg/dl Creatinine 0.62 (0.6-1.2) mg/dl Est Cr Clr Drug Dosing 115.7 ml/min Est GFR ( Amer) 121.0 ml/min Est GFR (Non-Af Amer) 104.4 ml/min BUN/Creatinine Ratio 16.1 (10-20) Glucose 177 H (70-99(Fasting)) mg/dl Estimat Average Glucose mg/dl Hemoglobin A1c (4.5-5.6) % Lactate (0.4-2.0) mmol/L Calcium 8.3 L (8.6-10.3) mg/dl Magnesium 2.0 (1.7-2.4) mg/dl Total Bilirubin 0.2 (0.2-1.0) mg/dl AST 9 L (13-39) U/L ALT 13 (7-52) U/L Alkaline Phosphatase 68 (34-104) U/L Troponin I High Sens < 2.3 (0-14) pg/ml B-Natriuretic Peptide (0-100) pg/ml Total Protein 6.2 (6.0-8.3) gm/dl Albumin 3.5 (3.4-5.0) gm/dl Globulin 2.7 (2.5-4.0) gm/dl Albumin/Globulin Ratio 1.3 (0.9-2) Lipase 13 (11-82) U/L Procalcitonin (0-0.5) ng/ml Urine Color Urine Appearance (Clear) Urine pH (4.5-7.5) Ur Specific [place] (1.000-1.030) Urine Protein (Negative) Urine Glucose (UA) (Negative) Urine Ketones (Negative) Urine Blood (Negative) Urine Nitrite (Negative) Urine Bilirubin (Negative) Urine Urobilinogen (Negative) Ur Leukocyte Esterase (Negative) Nasal Screen MRSA (PCR) (Negative) Urine Opiates Screen (Neg) Ur Methadone, Qual (Neg) Urine Barbiturates (Neg) Ur Phencyclidine (PCP) (Neg) U Amphetamin/Meth Scrn (Neg) MDMA (Ecstasy) Screen (Neg) U Benzodiazepines Scrn (Neg) Ur Cocaine Metabolite (Neg) U Marijuana (THC) Screen (Neg) Adenovirus (PCR) (NotDetected) B. pertussis DNA (PCR) (NotDetected) B.parapertussis DNA PCR (NotDetected) Lyme Disease IgG Ab Negative (Negative) Lyme IgG (Western Blot) Lyme IgG 18 kDa Band Lyme IgG 23 kDa Band Lyme IgG 28 kDa Band Lyme IgG 30 kDa Band Lyme IgG 39 kDa Band Lyme IgG 41 kDa Band Lyme IgG 45 kDa Band Lyme IgG 58 kDa Band Lyme IgG 66 kDa Band Lyme IgG 93 kDa Band Lyme IgM Ab (WB) Lyme Disease IgM Ab Equivocal A (Negative) Lyme IgM 23 kDa Band Lyme IgM 39 kDa Band Lyme IgM 41 kDa Band C. pneumoniae DNA (PCR) (NotDetected) Coronavirus OC43 (PCR) (NotDetected) Coronavirus HKU1 (PCR) (NotDetected) Coronavirus 229E (PCR) (NotDetected) SARS-CoV-2 (PCR) (NotDetected) Coronavirus NL63 (PCR) (NotDetected) Human Metapneumovir PCR (NotDetected) Influenza Type A (PCR) (NotDetected) Influenza Type B (PCR) (NotDetected) M. pneumoniae (PCR) (NotDetected) Parainfluenza 1 (PCR) (NotDetected) Parainfluenza 2 (PCR) (NotDetected) Parainfluenza 3 (PCR) (NotDetected) Parainfluenza 4 (PCR) (NotDetected) RSV (PCR) (NotDetected) Entero/Rhino (PCR) (NotDetected) Blood Type Antibody Screen
[2023-01-17 09:30] LABS: Estimated Average Glucose 114 mg/dl; Hemoglobin A1C 5.6 % (4.5-5.6)
[2023-01-17] MEDS: guaiFENesin 600 MG TABCR PO SCH ×2 (10:08→20:40)
[2023-01-17] MEDS: hydrOXYzine HCl 25 MG TAB PO PRN ×2 (17:56→22:56)
[2023-01-17] MEDS ORDERED: clonazePAM 1 MG TAB PO SCH (21:00)
[2023-01-17] MEDS ORDERED: traZODone HCL 100 MG TAB PO SCH (21:00)
[2023-01-18] MEDS: PIPERACILLIN/TAZOBACTAM 4.5 GM in DEXTROSE 5% 100 ML IV SCH ×2 (05:37→15:21)
[2023-01-18 07:45] LABS: Hematocrit (blood only) 36.7 % (37.0-47.0); Hemoglobin 12.4 g/dl (12.0-16.0); Mean Corpuscular Hemoglobin 31.4 pg (25.0-34.0); Mean Corpuscular Hgb Conc 33.8 g/dL (32.0-36.0); Mean Corpuscular Volume 92.9 fL (80.0-100.0); Platelet Count 227 K/uL (130-400); RDW Standard Deviation 43.8 fL (36.4-46.3); Red Blood Count 3.95 M/uL (4.20-5.40); White Blood Count 12.95 K/ul (4.8-10.8)
[2023-01-18 07:53] LABS: BUN Creatinine Ratio 11.6 (10-20); Calcium 8.1 mg/dl (8.6-10.3); Creatinine Clr Calc Pharmacy 104.3 ml/min; Est GFR (African American) 116.8 ml/min; Est GFR (Non-African American) 100.8 ml/min; Magnesium 2.1 mg/dl (1.7-2.4); Phosphorus 3.7 mg/dl (2.5-4.9); Potassium 3.4 mmol/L (3.5-5.1)
[2023-01-18] MEDS: PANTOprazole 40 MG in SYRINGE 0 ML IV SCH (08:11)
[2023-01-18] MEDS: LOSARTAN POTASSIUM 50 MG TAB PO SCH (08:11)
[2023-01-18] MEDS: guaiFENesin 600 MG TABCR PO SCH (08:11)
[2023-01-18] MEDS: ATORVASTATIN 40 MG TAB PO SCH (08:11)
[2023-01-18] MEDS: ESCITALOPRAM OXALATE 10 MG TAB PO SCH (08:11)
[2023-01-18] MEDS: SUCRALFATE 1 GM TAB PO SCH ×2 (08:11→11:41)
[2023-01-18] MEDS: levETIRAcetam 250 MG TAB PO SCH (08:11)
[2023-01-18] MEDS: EZETIMIBE 10 MG TABLET PO SCH (08:12)
[2023-01-18] MEDS: DOCUSATE SODIUM/SENNA 50/8.6MG TAB PO SCH (08:12)
--- NOTE | 2023-01-18 15:50 | Discharge Summary ---
Date of Service January 18, 2023 Admission HPI Per Admitting Provider History obtained from patient, family, and records. Medical history significant for COPD, hypertension, hyperlipidemia, migraine, history seizure/psychogenic nonepileptic seizures as per records, HCV status post treatment, anxiety/PTSD/mood disorder/borderline personality disorder, hiatal hernia, hyperprolactinemia as per records, past alcohol abuse, ongoing tobacco abuse. Patient migraine attacks worsening and more frequent in the last year. Two [facility] ER visits last month for anxiety and mood issues. Recent confinement at the [facility] last week for mood issues/suicidality. Following discharge from [facility], patient with achy abdominal pain, nausea, vomiting and subsequent junky cough symptoms. No chest pain, some SOB. Admits to coughing with meals/water intake if not careful. Not sure about sick contacts. Two ER visits at [facility] ER last week for headache vomiting attributed to migraine. Patient prescribed cefuroxime, Zithromax, and Decadron medications for pneumonia and migraine after second [place] [facility] ER visit 3 days ago. Patient later noted dark emesis. Not sure if blood. Has not moved her bowels a lot. No fever, no chills. Patient denies inordinate OTC NSAID intake. Patient consulted ER for worsening symptoms. Azithromycin and Zosyn administered at the ER for multilobar pneumonia on CT imaging. Medical History as above 2021 EGD showed esophageal stenosis, hiatal hernia 2014 colonoscopy was normal Surgical History : D&C, foot/toe surgery, forearm/wrist surgery, endometrial ablation/hysteroscopy, neck surgery Family History : Breast cancer, heart disease Personal/Social history : 1/4 pack daily, past alcohol abuse, disabled Admission Exam Per Admitting Provider GENERAL: Slightly uncomfortable, obese, no respiratory distress SKIN: Normal color, warm HEENT: pink palpebral conjunctivae, no ptosis, dry buccal mucosa NECK : Supple, short neck, no tenderness CHEST : Decreased breath sounds, no tenderness HEART : RRR, no obvious murmurs ABDOMEN: Some distention, epigastric tenderness EXTREMITIES : Minimal LE swelling, no LE tenderness, no other conspicuous deformities noted NEUROLOGIC : Coherent, no facial asymmetry, no other gross focality Principal Diagnosis Pneumonia, possible aspiration pna nausea/vomiting Discharge Exam GENERAL: obese F no respiratory distress SKIN: Normal color, warm HEENT: pink palpebral conjunctivae, no ptosis NECK : Supple CHEST : CTAB, no tenderness HEART : RRR, no obvious murmurs ABDOMEN: Some distention, soft, nontender, + bowel sounds EXTREMITIES : Minimal LE swelling, no LE tenderness, moves extremities NEUROLOGIC : alert , oriented , no facial asymmetry, speech fluent, moves extremities Discharge Data Allergies Allergy/AdvReac Type Severity Reaction Status Date / Time No Known Allergies Allergy Verified 01/16/23 22:08 Consultations 01/16/23 23:48 ED Decision to Admit Stat 01/17/23 03:11 Consult Gastroenterology Routine Ordered Studies 01/16/23 22:56 CT abd pelvis IV con only Stat FINDINGS: Lung bases: Multilobar consolidation involving the bilateral lower lobes, right middle lobe consistent with multifocal pneumonia. Minimal atelectasis of the lingular lobe. Pleural space: Trace bilateral pleural effusions versus pleural thickening. Mediastinum: Mild hiatal hernia. ABDOMEN: Liver: Unremarkable. No mass. Gallbladder and bile ducts: Unremarkable. No calcified stones. No ductal dilation. Pancreas: Unremarkable. No mass. No ductal dilation. Spleen: Unremarkable. No splenomegaly. Adrenals: Unremarkable. No mass. Kidneys and ureters: Unremarkable. No solid mass. No hydronephrosis. Stomach and bowel: Moderate to abundant fecal debris within the colon, cannot exclude mild constipation. No obstruction. No mucosal thickening. PELVIS: Appendix: Normal appendix. Bladder: Unremarkable. No mass. Reproductive: Anteverted uterus. ABDOMEN and PELVIS: Intraperitoneal space: Unremarkable. No free air. No significant fluid collection. Bones/joints: Mild spondylosis throughout the lumbar spine. No acute fracture. No dislocation. Soft tissues: Unremarkable. Vasculature: Unremarkable. No abdominal aortic aneurysm. Lymph nodes: Unremarkable. No enlarged lymph nodes. IMPRESSION: 1. Multilobar pneumonia. 2. Mild hiatal hernia. 3. Possible constipation. No acute appendicitis or bowel obstruction. 01/17/23 00:56 MRI Brain [MR brain wo/w con] Stat FINDINGS: Brain: Unremarkable. No restricted diffusion abnormality to suggest acute stroke. No intracranial hemorrhage. No abnormal enhancement is demonstrated. No intracranial lesion. Ventricles: Unremarkable. No ventriculomegaly. Bones/joints: Unremarkable. Sinuses: Mild mucosal thickening involving the bilateral maxillary sinuses, right more than left, likely sequela of chronic sinusitis. Otherwise clear paranasal sinuses. Mastoid air cells: Unremarkable as visualized. No mastoid effusion. Orbits: Unremarkable as visualized. IMPRESSION: 1. Normal MRI brain with no acute stroke or intracranial hemorrhage. No distinct intracranial lesion. 2. Sequela of the maxillary sinus disease as described. Hospital Course (1) Healthcare associated bacterial pneumonia: Multilobar pneumonia on CT Recent confinement at a local psychiatric facility possible aspiration, history hiatal hernia Possible sepsis hx COPD Not in acute exacerbation without overt wheezing on exam current oxygenation within normal limits Medical telemetry CS, Zosyn Aspiration precautions, swallow eval Will discharge on PO abx - augmentin New onset anemia secondary to possible UGIB - GI consulted Started on PPI - no plan for inpt endoscopy plan for outpt follow up w/ GI and endoscopy Clinically pt much improved and wants magnus discharged hypertension, BP stable hyperlipidemia on statin Rx Worsening migraine headaches rule out brain tumor - MRI obtained - negative History seizure/PNES disorder, baseline control on Keppra - follows w/ [facility] neurolog[facility] HCV status post treatment anxiety/PTSD/mood disorder/borderline personality disorder, at baseline as per patient hyperprolactinemia likely secondary to psychiatric meds Hypokalemia secondary to emesis - Replace potassium Steroid-induced hyperglycemia likely secondary to recent outpatient Decadron Rx, current A1c 5.6% ongoing tobacco abuse- nicotine patch ordered Total Time Total Time Spent Total Time Spent (In Minutes): 40 Discharge Plan Discharge Items Patient Disposition: Home - Self-Care Reason For Visit: UGI BLEED Discharge Diagnosis: Pneumonia, possible aspiration pna nausea/vomiting Activity: Per Instructions section Non-emergency contact: Primary Care Provider and Checkering Machine Adjuster Call non-emergency contact if: you have any medication questions and your symptoms worsen Follow-up/Referrals: Rick Owens DO [Primary Care Provider] - (Date & Time 01/23/2023 4:00 PM Provider Jamie Whitten PA-C Department Family Practice [facility], [place] Please note that this appointment is in [place] ) Diet: Regular and Heart Healthy Addtl Attending Provider Instructions: Follow-up with your primary care physician, and gastroenterology. The appointment with your primary care physician was scheduled for you for January 23. You will be contacted about the appointment with gastroenterology. Finish antibiotic treatment with Augmentin as prescribed. Also recommend taking guaifenesin/ mucinex. Also recommend taking probiotics. As discussed, you should eat small portions more frequently, and you should not eat several hours before going to bed. It is important that you always sit up straight when eating. Take pantoprazole twice a day for 3 months. Pending Studies at Discharge: Yes Studies:: final blood culture Stand-Alone Forms: My [facility], Smoking Cessation Medications and DC Order Prescriptions: New guaifenesin [Mucinex] 600 mg Tablet Extended Release 12hr 600 mg PO Q12 Qty: 14 0RF amoxicillin-pot clavulanate 875-125 mg tablet 1 tab PO BID Qty: 14 0RF Continued losartan 50 mg tablet 50 mg PO DAILY atorvastatin 80 mg Tablet 80 mg PO DAILY hydroxyzine pamoate 50 mg Capsule 50 mg PO TID PRN (Reason: Anxiety) omeprazole 40 mg capsule,delayed release(DR/EC) 40 mg PO BID famotidine 20 mg Tablet 20 mg PO BID trazodone 100 mg Tablet 100 mg PO HS ondansetron 4 mg tablet,disintegrating 4 mg PO TID PRN (Reason: NAUSEA/VOMITING) ezetimibe [Zetia] 10 mg Tablet 10 mg PO DAILY riboflavin (vitamin B2) 400 mg Tablet 400 mg PO DAILY magnesium oxide 400 mg magnesium Tablet 400 mg PO DAILY fluticasone propion-salmeterol [Advair Diskus] 250-50 mcg/dose Blister With Device 1 inh INHALATION BID orlistat [Xenical] 120 mg Capsule 120 mg PO TIDM Rx Instructions: administer during or up to 1 hour after meal chlorpromazine 100 mg tablet 100 mg PO HS sucralfate [Carafate] 1 gram Tablet 1 g PO ACHS clonazepam 1 mg tablet 1 mg PO HS rizatriptan 10 mg tablet,disintegrating 10 mg translingual DIRECTED PRN (Reason: Migraine Headache) Rx Instructions: TAKE AT ONSET OF RAO, MAY REPEAT EVERY 2 HRS. MAX 3 TABS IN 24 HOURS. diphenhydramine HCl [Banophen] 25 mg capsule 25 mg PO HS PRN (Reason: IF NEEDED PER EXT MED HX.) ferrous sulfate 325 mg (65 mg iron) Tablet 325 mg PO QAM dexamethasone 4 mg tablet 4 mg PO DAILY Rx Instructions: STARTED 01/14/23 FOR 3 DAYS levetiracetam [Keppra] 750 mg Tablet 750 mg PO BID mupirocin 2 % ointment 1 applic TOPICAL TID Rx Instructions: STARTED 01/14/23 FOR 14 DAYS. albuterol sulfate 90 mcg/actuation Hfa Aerosol Inhaler 2 puff INHALATION Q4H PRN (Reason: COUGH/SHORT OF BREATH/WHEEZING) escitalopram oxalate [Lexapro] 10 mg Tablet 10 mg PO DAILY cholecalciferol (vitamin D3) [Vitamin D3] 125 mcg (5,000 unit) Tablet 125 mcg PO WK Rx Instructions: MONDAYS Discontinued cefuroxime axetil 500 mg tablet 500 mg PO BID Rx Instructions: STARTED 01/14/23 FOR 10 DAYS. Discharge Orders: Discharge Order (Routine); Ordered 01/18/23 Ordered By: Jayjay Castro Admission Data Admit Date/Time: 01/17/23 00:54 Attending Provider: Jayjay Castro Admit Provider: Subhash Cheatham Primary Care Provider: Rick Owens Other Providers: Subhash Cheatham ; Royce Campo ; Jesus Alberto Ibrahim ; Roxane Nelson ; Kayla Bravo ; Araceli Chu ; Dianna José ; Renan Corona ; August Trejo ; Geovanna Napier ; Britt Felton ; Justin Isaac ; Minla Wu ; Emelia Colbert ; Chelsy Augustine ; Liudmila Pringle ; Chava Orellana ; Marco Palomino ; Michael Nicholson ; Keli Kelley ; Jun Telles Jr
[2023-01-19 03:02] LABS: 18KDIGG Band NON-REACTIVE; 23KDIGG Band NON-REACTIVE; 23KDIGM Band NON-REACTIVE; 28KDIGG Band NON-REACTIVE; 30KDIGG Band NON-REACTIVE; 39KDIGG Band NON-REACTIVE; 39KDIGM Band NON-REACTIVE; 41KDIGG Band NON-REACTIVE; 41KDIGM Band REACTIVE; 45KDIGG Band NON-REACTIVE; 58KDIGG Band NON-REACTIVE; 66KDIGG Band NON-REACTIVE; 93KDIGG Band NON-REACTIVE; Lyme Antibodies, WB IgG NEGATIVE (NEGATIVE); Lyme Antibodies, WB IgM NEGATIVE (NEGATIVE)
--- NOTE | 2023-01-19 12:23 | Coding Query ---
CODING QUERY To promote full compliance with coding requirements relating to patient care, provider participation is requested in all cases of travel physical therapist uncertainty. Please assist us with the question(s) below: Coding Question(s): Possible Sepsis is documented on the H&P and on the Discharge Summary. Please specify below, in your clinical opinion, the most likely source(s) of possible Sepsis: ( x ) Possible Sepsis is most likely due to Possible Aspiration Pneumonia ( ) Possible Sepsis is most likely due to Healthcare Associated Bacterial Pneumonia ( ) Possible Sepsis is most likely due to Other: Please Specify ( ) Possible Sepsis is most likely due to Unknown most likely cause Physician's Response(s): Thank you Bailey Becker Principal Diagnosis: "that condition established after study, to be chiefly responsible for occasioning the admission of the patient to the hospital for care." Co-Existing Principal Diagnosis: "when two or more diagnoses equally meet the criteria for principal diagnosis as determined by the circumstances of admission, diagnostic work up, and/or therapy provided, and the Alphabetic Index, Tabular List, or another coding guideline does not provide sequencing direction, any one of the diagnoses may be sequenced first." "When the physician has documented what appears to be a current diagnosis in the body of the record, but has not included the diagnosis in the final diagnostic statement, the physician should be asked whether the diagnosis should be added." (Source Coding Clinic 2 QTR90. p3-4) [email or web address]
== END 2023-01-18 15:50 | disposition home or self-care (01) | DRG 871 ==
LOC: ED 21:20 → 2W 01-17 00:54